=== PATIENT | male | born 1965 | race Caucasian/White ===

== ENCOUNTER → 2016-06-02 06:34 | Day surgery (SDC) | payer MEDICARE, MEDICAID ==
[~2016-06-02 06:34] MED LIST: Buffered Lidocaine 1% SYR 3ML* 3 ML/SYR SYRINGE INTRADERM ONE; Bupivacaine 0.25% SDV* 30 ML ONE; Clindamycin 900 MG IVPREMIX(* 900 MG/50 ML SDV IV ONE; Dexamethasone IV* 4 MG/ML 1 ML (4 MG) IV SLOW PU ONE; Dexamethasone IV* 4 MG/ML 1 ML (4 MG) ONE; Famotidine IV* 10 MG/ML 2 ML (20 mg) IV ONE; Famotidine IV* 10 MG/ML 2 ML (20 mg) ONE; KETAMINE HCL* 50 MG/ML 10 ML VIAL ONE; Ketorolac INJ* 30 MG/ML 1 ML VIAL ONE; Lidocaine 2% PF * 5 ML VIAL ONE; Midazolam* 1 MG/ML 5 ML VIAL (5 MG) ONE; Morphine INJ* 2 MG/ML 1 ML CARPUJECT IV PRN; Ondansetron INJ* 2 MG/ML VIAL ONE; PROCHLORPERAZINE INJ 5 MG/ML 2 ML VIAL IV PRN; PROCHLORPERAZINE INJ 5 MG/ML 2 ML VIAL ONE; Propofol* 10 MG/ML 20 ML BTL IV PUSH ONE; fentaNYL* 50 MCG/ML 2 ML VIAL (100 MCG VIAL) IV PRN; fentaNYL* 50 MCG/ML 2 ML VIAL (100 MCG VIAL) ONE; oxyCODONE/Acetamin 5/325 MG* TAB PO PRN
[2016-06-02 11:45] VITALS: BP 127/81
--- NOTE | 2016-06-02 21:10 | OP ---
DATE OF OPERATION: 06/02/16 - [facility] DATE OF : 69 SURGEON: Ez Burrell MD [address]IGHWAY MAINTENANCE TECHNICIAN: KAELYN Yancey ANESTHESIOLOGIST: Dr. Alvarez. ANESTHESIA: General. 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 OPERATIVE PROCEDURE: 1. Right thumb carpometacarpal interposition arthroplasty with trapeziectomy and tendon interposition. 2. Distally based right flexor carpi radialis split tendon transfer for thumb suspension. INDICATIONS: Vince has advanced thumb basal joint arthritis. We tried some nonoperative treatment. We talked about risks and benefits and he had elected to proceed with surgery. ESTIMATED BLOOD LOSS: 5 mL. COMPLICATIONS: None. FINDINGS: As expected, the scaphotrapezoid joint had relatively well preserved articular cartilage. DESCRIPTION OF PROCEDURE: Vince was seen in the preoperative holding area and the correct side, site, and procedure were identified. He was brought to the operating room where the anesthesia was induced. The arm was prepped and draped in the usual fashion. After a good prescrub and then we had a formal timeout. I made a longitudinal incision from the base of the thumb metacarpal just dorsal to the first dorsal compartment tendons down toward the radial styloid. Dissection was carried down longitudinally to preserve the sensory branches to the radial nerve. The radial artery was encountered. There were 3 perforating vessels that were tied off. This enabled mobilization of the artery. I then longitudinally incised the capsule and periosteum and then raised full- thickness capsule and periosteal flaps subperiosteally to expose the carpometacarpal joint, the trapeziotrapezoid joint, and the scaphotrapezial joint. The soft tissue was released circumferentially around the trapezium with a 69 Westpoint blade. I then used a rongeur and moved the trapezium en bloc. The FCR tendon was visible on the base of the wound. At this point, I went ahead and used a rongeur to remove few other bony ossicles and hypertrophic synovial tissue. I then raised a subperiosteal flap volarly off the base of the thumb. I then used sequentially larger drill bits to drill a hole for the tendon transfer from proximal dorsal radial to volar distal ulnar. I then irrigated the wound and we turned our attention to the forearm. At this point, I went ahead and made a transverse incision just proximal to the volar wrist flexion crease. This was overlying the FCR tendon. I opened up the sheath of the FCR tendon and freed up any adhesions between the tendon and the tendon sheath. About 8 cm proximal to this, I made a second transverse incision in a likewise manner to mobilize the FCR tendon. A third more proximal incision was made and again the FCR tendon was freed up. I then delivered the FCR tendon into the distal wound and performed a longitudinal split with a 15 blade. I passed a 26-gauge wire through the split. The wire was then delivered in the two more proximal wounds to complete the split of the tendon which was released at the musculotendinous junction. The free tail was delivered into the distal wound and the muscular tissue attached to the proximal tendon was debrided off. It was then tubularized with a 3-0 Ethibond suture. I then used a 26-gauge wire to shuttle it through the tendon sheath down into the thumb base wound. The remainder of the tendon split was carried out with the tenotomy scissors all the way back up to the base of the second metacarpal bone. The 26-gauge wire was used the pass the tendon through the bony tunnel, back around the intact limb and then as traction was pulled up towards the ceiling, I used a 3-0 Ethibond suture to secure the tendon transfer. I then rolled up the rest of the tendon and secured the ball of tendon with 3-0 Ethibond suture. This was then placed as an interposition between the base of the thumb and the distal pole of the scaphoid. Everything looked very nice. I then irrigated the wound. The capsule was closed with 3-0 Ethibond suture. All bleeders were coagulated. The skin in the forearm wounds was reapproximated using 3-0 Polysorb suture and closed with 4-0 nylon. The thumb base wound was closed with 4-0 nylon suture. I then went ahead and infiltrated Marcaine along the entirety of the wounds. The wounds were dressed with Xeroform, 4x4's, sterile Webril, and a thumb spica splint was applied. He was then taken to the recovery room in stable condition. [id number]/[facility] #: [id number] [facility]
== END | disposition home or self-care (01) ==
LOC: OREAST 06:34
PROVIDERS: ATTEND Orthopaedic Surgery Hand Surgery
DX: M18.11 Unilateral primary osteoarthritis of first carpometacarpal joint, right hand (principal); G40.909 Epilepsy, unspecified, not intractable, without status epilepticus; M77.11 Lateral epicondylitis, right elbow
CPT/HCPCS: 88304; 88311; J0780; J1100; J1885; J2250; J2405; J2704; J3010

== ENCOUNTER 2019-03-13 14:47 | Emergency (ER) | payer MEDICAID, MEDICARE, OTHER ==
--- OUTSIDE RECORDS SUMMARY | 2019-03-13 15:08 | XMS REPORT | Continuity of Care Document ---
:1965 External Reference #:[id number] Author Name Fabiola Vilchis PA Address [address] [facility] 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 Onset: 03/12/2017 Bipolar disorder Kobi Carlin M.D. Onset: 03/12/2017 Encounter for screening for nutritional Kobi Carlin M.D. Onset: 03/12/2017 disorder Immunization Kobi Carlin M.D. Onset: 03/12/2017 Hyperlipidemia Kobi Carlin M.D. Onset: 03/12/2017 Hyperlipidemia screening Kobi Carlin M.D. Onset: 03/12/2017 Other seizures Kobi Carlin M.D. Onset: 03/12/2017 Vitamin D deficiency Kobi Carlin M.D. Onset: 04/09/2017 Microscopic hematuria Kobi Carlin M.D. Onset: 04/09/2017 Anxiety state Kobi Carlin M.D. Onset: 05/22/2017 Contusion of hip Fabiola Vilchis PA Onset: 10/19/2017 Localized, primary osteoarthritis of Fabiola Vilchis PA Onset: 10/27/2017 the pelvic region and thigh Contusion of wrist Fabiola Vilchis PA Onset: 01/19/2018 Radial styloid tenosynovitis Fabiola Vilchis PA Onset: 01/19/2018 Contusion of foot Fabiola Vilchis PA Onset: 06/10/2018 Sprain of wrist Fabiola Vilchis PA Onset: 07/02/2018 Crushing injury of right wrist and Fabiola Vilchis PA Onset: 07/02/2018 hand, subsequent encounter Localized, primary osteoarthritis Fabiola Vilchis PA Onset: 12/09/2018 Derangement of knee Fabiola Vilchis PA Onset: 12/09/2018 Fall on same level from slipping, Fabiola Vilchis PA Onset: 12/09/2018 tripping or stumbling Sprain of ankle Fabiola Vilchis PA Onset: 01/10/2019 Social History Type Date Description Comments Sex Unknown Tobacco Use Start: Unknown Never Smoked Cigarettes ETOH Use Denies alcohol use Tobacco Use Start: Unknown Patient denies history of smoking Recreational Drug Use Denies Drug Use Smoking Status Reviewed: 01/10/19 Patient denies history of smoking Exercise Type/Frequency Exercises regularly walks Allergies, Adverse Reactions, Alerts Active Allergies Reaction Severity Comments Date Penicillins 01/17/2009 Codeine 01/30/2012 Cortisone Injection 12/04/2017 Medications Active Medications SIG Qnty Indications Ordering Date Provider Depakote take one tablet by Cal Gonzalez MD 500mg Tablets DR mouth twice a day Naproxen take one tablet by Unknown 500mg Tablets mouth twice a day Meloxicam 1 by mouth every Unknown 15mg Tablets day with food Ibuprofen 1 by mouth three Unknown 600mg Tablets times a day as needed Soothing - 12 Hour [place] 2 Sprays Unknown Nasal Decongestant Intranasally Two 0.05% Times A Day For Solution Only 3 Days Doxycycline Hyclate Take One Capsule By Unknown 100mg Mouth Twice A Day Capsules Divalproex Sodium ER Take One Tablet By Unknown Mouth Every Evening 250mg Tablets ER 24HR With 500MG Tablet Cyclobenzaprine HCL Take One Tablet By Unknown 5mg Mouth Three Times A Tablets Day as Needed For Muscle Spasms Divalproex Sodium ER Take One Tablet By Unknown Mouth Every Morning 500mg Tablets ER 24HR And In The Evenings With 250MG Tablet Ondansetron HCL Take One Tablet By Unknown 4mg Mouth Every 8 Hours Tablets as Needed For Nausea Medications Administered in Office Medication SIG Qnty Indications Ordering Provider Date Betamethasone Acetate & Sodium Fabiola Vilchis PA 02/11/2018 Phosphate 3 MG Of Each Injection Immunizations CPT Code Status Date Vaccine Lot # [id number] Given 03/12/2017 Tdap injection [id number] Given 09/11/1997 Tetnus Injection Vital Signs Date Vital Result Comment 01/10/2019 1:03pm BP Systolic 122 mmHg BP Diastolic 83 mmHg Body Temperature 96.7 F Heart Rate 70 /min Height 66 inches 5'6" Weight 179.00 lb BMI (Body Mass Index) 28.9 kg/m2 BSA (Body Surface Area) 1.91 m2 Pickerel body weight in kilograms 64 kg O2 % BldC Oximetry 100 % 12/23/2018 1:17pm BP Systolic 128 mmHg BP Diastolic 90 mmHg Body Temperature 96.8 F Heart Rate 86 /min Height 66 inches 5'6" Weight 179.00 lb BMI (Body Mass Index) 28.9 kg/m2 BSA (Body Surface Area) 1.91 m2 Pickerel body weight in kilograms 64 kg O2 % BldC Oximetry 98 % Results Test Acquired Date Facility Test Result H/L Range Note CBC 11/25/2018 [facility] White Blood 5.7 K/uL Normal 3.4-10.5 1 W/Automated [address] [place] [address] [phone] Red Blood Count 5.45 M/uL Normal 4.20-5.80 Hemoglobin 15.4 gm/dL Normal 12.8-17.0 Hematocrit 47.8 % 38.0-48.0 Mean Cell Volume 87.7 fl Normal 80.0-96.0 Mean Corpuscular HGB 28.3 pg Normal 27.0-33.0 Mean Corpuscular HGB Conc 32.2 g/dL Normal 31.7-36.0 Platelet Count 257 K/uL Normal 155-360 Red Cell Distri Width SD 42.5 fl Normal 36-51 Red Cell Distri Width %CV 13.3 % Normal 11.6-15.8 Mean Platelet Volume 10.8 fl High 6.6-10.6 Neut% 46.5 % Normal 33.0-73.0 Lymph % 39.1 % Normal 20.0-42.0 [place] % 8.5 % Normal 0.0-10.0 Eo% 4.8 % Normal 0.0-6.6 Bas% 0.7 % Normal 0.0-1.1 Immature Grans 0.4 % Normal 0.0-5.0 NRBC % 0.0 /100WBC < 10/ 100 WBC Neut# 2.65 K/uL Normal 1.8-7.0 Lymph # 2.22 K/uL Normal 1.0-4.0 Clarion # 0.48 K/uL Normal 0.0-0.8 Eos # 0.27 K/uL Normal 0.0-0.5 Baso # 0.04 K/uL Normal 0.0-0.1 Immature Grans Absolute 0.02 K/uL NRBC # 0.00 K/uL Comprehensive 11/25/2018 [facility] Glucose 89 mg/dL Normal 74-106 Metabolic Panel [address] [place] [address] [phone] BUN 23 mg/dL High 7-18 Creatinine 1.1 mg/dL Normal 0.6-1.3 Glom Filtration Rate, Estimate >60 mL/min >60 If >60 mL/min >60 2 BUN/Creat 20.9 ratio Sodium 140 mmol/L Normal 136-145 Potassium 4.3 mmol/L Normal 3.5-5.1 Chloride 106 mmol/L Normal 98-107 Carbon Dioxide 30 mmol/L Normal 21-32 Anion Gap 4 mEq/L Low 8-16 Calcium 9.0 mg/dL Normal 8.5-10.1 Total Protein 7.0 g/dL Normal 6.4-8.2 Albumin 3.7 g/dL Normal 3.4-5.0 Globulin 3.3 g/dL Normal 1.9-4.3 Alb/Glob 1.1 ratio Bilirubin,Total 0.3 mg/dL Normal 0.2-1.0 Sgot/Ast 8 U/L Low 15-37 3 SGPT/Alt 21 U/L Normal 12-78 Alkaline Phosphatase 83 U/L Normal 45-117 CBC W/Automated 11/21/2018 [facility] White Blood 6.5 K/uL Normal 3.4-10.5 [address] [place] [address] [phone] Red Blood Count 4.91 M/uL Normal 4.20-5.80 Hemoglobin 14.6 gm/dL Normal 12.8-17.0 Hematocrit 42.3 % Normal 38.0-48.0 Mean Cell Volume 86.2 fl Normal 80.0-96.0 Mean Corpuscular HGB 29.7 pg Normal 27.0-33.0 Mean Corpuscular HGB Conc 34.5 g/dL Normal 31.7-36.0 Platelet Count 260 K/uL Normal 155-360 Red Cell Distri Width SD 42.0 fl Normal 36-51 Red Cell Distri Width %CV 13.4 % Normal 11.6-15.8 Mean Platelet Volume 10.9 fl High 6.6-10.6 Neut% 48.8 % Normal 33.0-73.0 Lymph % 36.3 % Normal 20.0-42.0 Clar[place] % 9.7 % Normal 0.0-10.0 Eo% 3.8 % Normal 0.0-6.6 Bas% 0.9 % Normal 0.0-1.1 Immature Grans 0.5 % Normal 0.0-5.0 NRBC % 0.0 /100WBC < 10/ 100 WBC Neut# 3.18 K/uL Normal 1.8-7.0 Lymph # 2.36 K/uL Normal 1.0-4.0 Clar[place] # 0.63 K/uL Normal 0.0-0.8 Eos # 0.25 K/uL Normal 0.0-0.5 Baso # 0.06 K/uL Normal 0.0-0.1 Immature Grans Absolute 0.03 K/uL NRBC # 0.00 K/uL Laboratory test 11/21/2018 [facility] Valproic 69.1 Normal 50.0-100.[address] Acid ug/[place] [address] [phone] Comprehensive 11/21/2018 [facility] Glucose 109 High 74-106 Metabolic Panel [address] mg/[place] [address] [phone] BUN 17 mg/dL Normal 7-18 Creatinine 1.0 mg/dL Normal 0.6-1.3 Glom Filtration Rate, Estimate >60 mL/min >60 If >60 mL/min >60 5 BUN/Creat 17.0 ratio Sodium 141 mmol/L Normal 136-145 Potassium 3.9 mmol/L Normal 3.5-5.1 Chloride 108 mmol/L High 98-107 Carbon Dioxide 25 mmol/L Normal 21-32 Anion Gap 8 mEq/L Normal 8-16 Calcium 8.4 mg/dL Low 8.5-10.1 Total Protein 6.5 g/dL Normal 6.4-8.2 Albumin 3.4 g/dL Normal 3.4-5.0 Globulin 3.1 g/dL Normal 1.9-4.3 Alb/Glob 1.1 ratio Bilirubin,Total 0.3 mg/dL Normal 0.2-1.0 Sgot/Ast 14 U/L Low 15-37 6 SGPT/Alt 24 U/L Normal 12-78 Alkaline Phosphatase 73 U/L Normal 45-117 Ua RFX Micro & Culture 11/21/2018 [facility] Urine Color Yellow Yellow II [address] [place] [address] [phone] Urine Clarity Clear Clear Urine Glucose - Dipstick NEGATIVE mg/dL Negative Urine Bilirubin - Dipstick NEGATIVE Negative Urine Ketone TRACE mg/dL Negative Urine Specific [place] 1.030 Normal 1.010-1.030 Urine Blood NEGATIVE 0-2 Urine PH 6.5 Normal 6.5-7.5 Urine Protein - Dipstick NEGATIVE mg/dL Negative Urine Urobilinogen - Dipstick < 2.0 mg/dL < 2.0 Urine Nitrite - Dipstick NEGATIVE Negative Urine Leuk Esterase NEGATIVE Negative Source: URINE, CLEAN CAT <SEE NOTE> 7 CBC W/Automated 10/30/2018 [facility] White Blood 6.3 K/uL Normal 3.4-10.5 [address] [place] [address] [phone] Red Blood Count 5.06 M/uL Normal 4.20-5.80 Hemoglobin 14.9 gm/dL Normal 12.8-17.0 Hematocrit 43.5 % Normal 38.0-48.0 Mean Cell Volume 86.0 fl Normal 80.0-96.0 Mean Corpuscular HGB 29.4 pg Normal 27.0-33.0 Mean Corpuscular HGB Conc 34.3 g/dL Normal 31.7-36.0 Platelet Count 201 K/uL Normal 155-360 Red Cell Distri Width SD 40.1 fl Normal 36-51 Red Cell Distri Width %CV 13.1 % Normal 11.6-15.8 Mean Platelet Volume 10.7 fl High 6.6-10.6 Neut% 55.7 % Normal 33.0-73.0 Lymph % 29.8 % Normal 20.0-42.0 [place] % 10.5 % High 0.0-10.0 Eo% 2.7 % Normal 0.0-6.6 Bas% 0.8 % Normal 0.0-1.1 Immature Grans 0.5 % Normal 0.0-5.0 NRBC % 0.0 /100WBC < 10/ 100 WBC Neut# 3.49 K/uL Normal 1.8-7.0 Lymph # 1.87 K/uL Normal 1.0-4.0 [place] # 0.66 K/uL Normal 0.0-0.8 Eos # 0.17 K/uL Normal 0.0-0.5 Baso # 0.05 K/uL Normal 0.0-0.1 Immature Grans Absolute 0.03 K/uL NRBC # 0.00 K/uL Comprehensive Metabolic 10/30/2018 [facility] Glucose 127 mg/dL High 74-106 Panel [address] [place], [place] [id number] [phone] BUN 19 mg/dL High 7-18 Creatinine 1.1 mg/dL Normal 0.6-1.3 Glom Filtration Rate, Estimate >60 mL/min >60 If >60 mL/min >60 9 BUN/Creat 17.2 ratio Sodium 143 mmol/L Normal 136-145 Potassium 4.0 mmol/L Normal 3.5-5.1 Chloride 108 mmol/L High 98-107 Carbon Dioxide 28 mmol/L Normal 21-32 Anion Gap 7 mEq/L Low 8-16 Calcium 8.6 mg/dL Normal 8.5-10.1 Total Protein 6.6 g/dL Normal 6.4-8.2 Albumin 3.6 g/dL Normal 3.4-5.0 Globulin 3.0 g/dL Normal 1.9-4.3 Alb/Glob 1.2 ratio Bilirubin,Total 0.3 mg/dL Normal 0.2-1.0 Sgot/Ast 10 U/L Low 15-37 10 SGPT/Alt 17 U/L Normal 12-78 Alkaline Phosphatase 67 U/L Normal 45-117 Ua RFX Micro & Culture 10/24/2018 [facility] Urine Color YELLOW Yellow 11 II [address] [place] [address] [phone] Urine Clarity CLEAR Clear Urine Glucose - Dipstick NEGATIVE mg/dL Negative Urine Bilirubin - Dipstick NEGATIVE Negative Urine Ketone NEGATIVE mg/dL Negative Urine Specific [place] 1.020 Normal 1.010-1.030 Urine Blood NEGATIVE Negative Urine PH 5.5 Low 6.5-7.5 Urine Protein - Dipstick NEGATIVE mg/dL Negative Urine Urobilinogen - Dipstick 0.2 E.U./dL Normal 0.2-1.0 Urine Nitrite - Dipstick NEGATIVE Negative Urine Leuk Esterase NEGATIVE Negative Source: URINE, CLEAN CAT <SEE NOTE> 12 Ua RFX Micro & Culture 10/21/2018 [facility] Urine Color YELLOW Yellow 13 II [address] [place] [address] [phone] Urine Clarity CLEAR Clear Urine Glucose - Dipstick NEGATIVE mg/dL Negative Urine Bilirubin - Dipstick NEGATIVE Negative Urine Ketone 15 mg/dL High Negative Urine Specific [place] 1.025 Normal 1.010-1.030 Urine Blood NEGATIVE Negative Urine PH 6.0 Low 6.5-7.5 Urine Protein - Dipstick NEGATIVE mg/dL Negative Urine Urobilinogen - Dipstick 2.0 E.U./dL High 0.2-1.0 Urine Nitrite - Dipstick NEGATIVE Negative Urine Leuk Esterase NEGATIVE Negative Source: URINE, CLEAN CAT <SEE NOTE> 14 CBC W/Automated 10/21/2018 [facility] White Blood 7.4 K/uL Normal 3.4-10.5 Diff [address] [place] [address] [phone] Red Blood Count 5.51 M/uL Normal 4.20-5.80 Hemoglobin 16.3 gm/dL Normal 12.8-17.0 Hematocrit 46.9 % Normal 38.0-48.0 Mean Cell Volume 85.1 fl Normal 80.0-96.0 Mean Corpuscular HGB 29.6 pg Normal 27.0-33.0 Mean Corpuscular HGB Conc 34.8 g/dL Normal 31.7-36.0 Platelet Count 244 K/uL Normal 155-360 Red Cell Distri Width SD 39.9 fl Normal 36-51 Red Cell Distri Width %CV 13.0 % Normal 11.6-15.8 Mean Platelet Volume 11.1 fl High 6.6-10.6 Neut% 51.1 % Normal 33.0-73.0 Lymph % 35.8 % Normal 20.0-42.0 Clar[place] % 8.4 % Normal 0.0-10.0 Eo% 3.4 % Normal 0.0-6.6 Bas% 0.9 % Normal 0.0-1.1 Immature Grans 0.4 % Normal 0.0-5.0 NRBC % 0.0 /100WBC < 10/ 100 WBC Neut# 3.76 K/uL Normal 1.8-7.0 Lymph # 2.64 K/uL Normal 1.0-4.0 [place] # 0.62 K/uL Normal 0.0-0.8 Eos # 0.25 K/uL Normal 0.0-0.5 Baso # 0.07 K/uL Normal 0.0-0.1 Immature Grans Absolute 0.03 K/uL NRBC # 0.00 K/uL Comprehensive 10/21/2018 [facility] Glucose 89 mg/dL Normal 74-106 Metabolic Panel [address] [place], [place] [id number] [phone] BUN 22 mg/dL High 7-18 Creatinine 1.2 mg/dL Normal 0.6-1.3 Glom Filtration Rate, Estimate >60 mL/min >60 If >60 mL/min >60 15 BUN/Creat 18.3 ratio Sodium 140 mmol/L Normal 136-145 Potassium 4.1 mmol/L Normal 3.5-5.1 Chloride 107 mmol/L Normal 98-107 Carbon Dioxide 27 mmol/L Normal 21-32 Anion Gap 6 mEq/L Low 8-16 Calcium 8.5 mg/dL Normal 8.5-10.1 Total Protein 7.3 g/dL Normal 6.4-8.2 Albumin 3.9 g/dL Normal 3.4-5.0 Globulin 3.4 g/dL Normal 1.9-4.3 Alb/Glob 1.1 ratio Bilirubin,Total 0.3 mg/dL Normal 0.2-1.0 Sgot/Ast 9 U/L Low 15-37 16 SGPT/Alt 20 U/L Normal 12-78 Alkaline Phosphatase 75 U/L Normal 45-117 Laboratory 10/21/2018 [facility] Valproic 107.4 High 50.0-100.0 test finding [address] Acid ug/[place] [address] [phone] CBC 10/10/2018 [facility] White Blood 6.8 K/uL Normal 3.4-10.5 17 W/Automated [address] [place] [address] [phone] Red Blood Count 5.40 M/uL Normal 4.20-5.80 Hemoglobin 15.8 gm/dL Normal 12.8-17.0 Hematocrit 46.3 % Normal 38.0-48.0 Mean Cell Volume 85.7 fl Normal 80.0-96.0 Mean Corpuscular HGB 29.3 pg Normal 27.0-33.0 Mean Corpuscular HGB Conc 34.1 g/dL Normal 31.7-36.0 Platelet Count 273 K/uL Normal 155-360 Red Cell Distri Width SD 40.8 fl Normal 36-51 Red Cell Distri Width %CV 13.2 % Normal 11.6-15.8 Mean Platelet Volume 11.6 fl High 6.6-10.6 Neut% 49.1 % Normal 33.0-73.0 Lymph % 39.0 % Normal 20.0-42.0 Clar[place] % 8.2 % Normal 0.0-10.0 Eo% 2.7 % Normal 0.0-6.6 Bas% 0.7 % Normal 0.0-1.1 Immature Grans 0.3 % Normal 0.0-5.0 NRBC % 0.0 /100WBC < 10/ 100 WBC Neut# 3.33 K/uL Normal 1.8-7.0 Lymph # 2.65 K/uL Normal 1.0-4.0 [place] # 0.56 K/uL Normal 0.0-0.8 Eos # 0.18 K/uL Normal 0.0-0.5 Baso # 0.05 K/uL Normal 0.0-0.1 Immature Grans Absolute 0.02 K/uL NRBC # 0.00 K/uL Comprehensive 10/10/2018 [facility] Glucose 96 mg/dL Normal 74-106 Metabolic Panel [address] [place] [address] [phone] BUN 18 mg/dL Normal 7-18 Creatinine 1.1 mg/dL Normal 0.6-1.3 Glom Filtration Rate, Estimate >60 mL/min >60 If >60 mL/min >60 18 BUN/Creat 16.3 ratio Sodium 142 mmol/L Normal 136-145 Potassium 3.7 mmol/L Normal 3.5-5.1 Chloride 109 mmol/L High 98-107 Carbon Dioxide 24 mmol/L Normal 21-32 Anion Gap 9 mEq/L Normal 8-16 Calcium 8.5 mg/dL Normal 8.5-10.1 Total Protein 7.3 g/dL Normal 6.4-8.2 Albumin 4.0 g/dL Normal 3.4-5.0 Globulin 3.3 g/dL Normal 1.9-4.3 Alb/Glob 1.2 ratio Bilirubin,Total 0.3 mg/dL Normal 0.2-1.0 Sgot/Ast 11 U/L Low 15-37 19 SGPT/Alt 18 U/L Normal 12-78 Alkaline Phosphatase 78 U/L Normal 45-117 Laboratory test 09/22/2018 [facility] Valproic 5.5 Low 50.0-100.0 [address] Acid ug/[place] [address] [phone] Comprehensive 09/22/2018 [facility] Glucose 102 Normal 74-106 Metabolic Panel [address] mg/[place] [address] [phone] BUN 14 mg/dL Normal 7-18 Creatinine 1.1 mg/dL Normal 0.6-1.3 Glom Filtration Rate, Estimate >60 mL/min >60 If >60 mL/min >60 21 BUN/Creat 12.7 ratio Sodium 142 mmol/L Normal 136-145 Potassium 3.5 mmol/L Normal 3.5-5.1 Chloride 111 mmol/L High 98-107 Carbon Dioxide 24 mmol/L Normal 21-32 Anion Gap 7 mEq/L Low 8-16 Calcium 8.7 mg/dL Normal 8.5-10.1 Total Protein 7.2 g/dL Normal 6.4-8.2 Albumin 3.9 g/dL Normal 3.4-5.0 Globulin 3.3 g/dL Normal 1.9-4.3 Alb/Glob 1.2 ratio Bilirubin,Total 0.4 mg/dL Normal 0.2-1.0 Sgot/Ast 13 U/L Low 15-37 22 SGPT/Alt 20 U/L Normal 12-78 Alkaline Phosphatase 84 U/L Normal 45-117 Ua RFX Micro & Culture 09/22/2018 [facility] Urine Color YELLOW Yellow II [address] [place] [address] [phone] Urine Clarity CLEAR Clear Urine Glucose - Dipstick NEGATIVE mg/dL Negative Urine Bilirubin - Dipstick NEGATIVE Negative Urine Ketone NEGATIVE mg/dL Negative Urine Specific [place] 1.025 Normal 1.010-1.030 Urine Blood NEGATIVE Negative Urine PH 6.5 Normal 6.5-7.5 Urine Protein - Dipstick TRACE mg/dL Negative Urine Urobilinogen - Dipstick 0.2 E.U./dL Normal 0.2-1.0 Urine Nitrite - Dipstick NEGATIVE Negative Urine Leuk Esterase NEGATIVE Negative Source: URINE, CLEAN CAT <SEE NOTE> 23 CBC W/Automated 09/22/2018 [facility] White Blood 6.5 K/uL Normal 3.4-10.[address] [place] [address] [phone] Red Blood Count 5.45 M/uL Normal 4.20-5.80 Hemoglobin 15.9 gm/dL Normal 12.8-17.0 Hematocrit 44.7 % Normal 38.0-48.0 Mean Cell Volume 82.0 fl Normal 80.0-96.0 Mean Corpuscular HGB 29.2 pg Normal 27.0-33.0 Mean Corpuscular HGB Conc 35.6 g/dL Normal 31.7-36.0 Platelet Count 263 K/uL Normal 155-360 Red Cell Distri Width SD 37.2 fl Normal 36-51 Red Cell Distri Width %CV 12.5 % Normal 11.6-15.8 Mean Platelet Volume 11.6 fl High 6.6-10.6 Neut% 58.1 % Normal 33.0-73.0 Lymph % 29.2 % Normal 20.0-42.0 [place] % 9.3 % Normal 0.0-10.0 Eo% 2.3 % Normal 0.0-6.6 Bas% 0.8 % Normal 0.0-1.1 Immature Grans 0.3 % Normal 0.0-5.0 NRBC % 0.0 /100WBC < 10/ 100 WBC Neut# 3.77 K/uL Normal 1.8-7.0 Lymph # 1.89 K/uL Normal 1.0-4.0 [place] # 0.60 K/uL Normal 0.0-0.8 Eos # 0.15 K/uL Normal 0.0-0.5 Baso # 0.05 K/uL Normal 0.0-0.1 Immature Grans Absolute 0.02 K/uL NRBC # 0.00 K/uL Ua RFX Micro & Culture 08/28/2018 [facility] Urine Color YELLOW Yellow II [address] [place] [address] [phone] Urine Clarity CLEAR Clear Urine Glucose - Dipstick NEGATIVE mg/dL Negative Urine Bilirubin - Dipstick NEGATIVE Negative Urine Ketone NEGATIVE mg/dL Negative Urine Specific [place] 1.015 Normal 1.010-1.030 Urine Blood NEGATIVE Negative Urine PH 7.5 Normal 6.5-7.5 Urine Protein - Dipstick NEGATIVE mg/dL Negative Urine Urobilinogen - Dipstick 0.2 E.U./dL Normal 0.2-1.0 Urine Nitrite - Dipstick NEGATIVE Negative Urine Leuk Esterase NEGATIVE Negative Source: URINE, CLEAN CAT <SEE NOTE> 24 Comprehensive 08/28/2018 [facility] Glucose 100 mg/dL Normal 74-106 Metabolic Panel [address] [place] [address] [phone] BUN 20 mg/dL High 7-18 Creatinine 1.2 mg/dL Normal 0.6-1.3 Glom Filtration Rate, Estimate >60 mL/min >60 If >60 mL/min >60 25 BUN/Creat 16.6 ratio Sodium 141 mmol/L Normal 136-145 Potassium 4.1 mmol/L Normal 3.5-5.1 Chloride 110 mmol/L High 98-107 Carbon Dioxide 23 mmol/L Normal 21-32 Anion Gap 8 mEq/L Normal 8-16 Calcium 8.8 mg/dL Normal 8.5-10.1 Total Protein 7.1 g/dL Normal 6.4-8.2 Albumin 3.8 g/dL Normal 3.4-5.0 Globulin 3.3 g/dL Normal 1.9-4.3 Alb/Glob 1.2 ratio Bilirubin,Total 0.3 mg/dL Normal 0.2-1.0 Sgot/Ast 14 U/L Low 15-37 26 SGPT/Alt 24 U/L Normal 12-78 Alkaline Phosphatase 82 U/L Normal 45-117 Laboratory test 08/28/2018 [facility] Lipase 149 U/L Normal 56-289 finding [address] [place] [address] [phone] CBC W/Automated 08/28/2018 [facility] White Blood 6.6 K/uL Normal 3.4-10.[address] [place] [address] [phone] Red Blood Count 5.25 M/uL Normal 4.20-5.80 Hemoglobin 15.4 gm/dL Normal 12.8-17.0 Hematocrit 44.7 % Normal 38.0-48.0 Mean Cell Volume 85.1 fl Normal 80.0-96.0 Mean Corpuscular HGB 29.3 pg Normal 27.0-33.0 Mean Corpuscular HGB Conc 34.5 g/dL Normal 31.7-36.0 Platelet Count 251 K/uL Normal 155-360 Red Cell Distri Width SD 39.8 fl Normal 36-51 Red Cell Distri Width %CV 12.8 % Normal 11.6-15.8 Mean Platelet Volume 11.2 fl High 6.6-10.6 Neut% 53.4 % Normal 33.0-73.0 Lymph % 34.1 % Normal 20.0-42.0 [place] % 8.3 % Normal 0.0-10.0 Eo% 3.0 % Normal 0.0-6.6 Bas% 0.9 % Normal 0.0-1.1 Immature Grans 0.3 % Normal 0.0-5.0 NRBC % 0.0 /100WBC < 10/ 100 WBC Neut# 3.54 K/uL Normal 1.8-7.0 Lymph # 2.26 K/uL Normal 1.0-4.0 Clar[place] # 0.55 K/uL Normal 0.0-0.8 Eos # 0.20 K/uL Normal 0.0-0.5 Baso # 0.06 K/uL Normal 0.0-0.1 Immature Grans Absolute 0.02 K/uL NRBC # 0.00 K/uL Ua RFX Micro & Culture 08/07/2018 [facility] Urine Color YELLOW Yellow [address] [place] [address] [phone] Urine Clarity SL CLOUDY Clear Urine Glucose - Dipstick NEGATIVE mg/dL Negative Urine Bilirubin - Dipstick NEGATIVE Negative Urine Ketone 15 mg/dL High Negative Urine Specific Warren 1.010 Normal 1.010-1.030 Urine Blood NEGATIVE Negative Urine PH 7.0 Normal 6.5-7.5 Urine Protein - Dipstick NEGATIVE mg/dL Negative Urine Urobilinogen - Dipstick 0.2 E.U./dL Normal 0.2-1.0 Urine Nitrite - Dipstick NEGATIVE Negative Urine Leuk Esterase NEGATIVE Negative Source: URINE, CLEAN CAT <SEE NOTE> 28 CBC W/Automated 08/07/2018 [facility] White Blood 6.5 K/uL Normal 3.4-10.[address] [place] [address] [phone] Red Blood Count 5.31 M/uL Normal 4.20-5.80 Hemoglobin 15.6 gm/dL Normal 12.8-17.0 Hematocrit 44.9 % Normal 38.0-48.0 Mean Cell Volume 84.6 fl Normal 80.0-96.0 Mean Corpuscular HGB 29.4 pg Normal 27.0-33.0 Mean Corpuscular HGB Conc 34.7 g/dL Normal 31.7-36.0 Platelet Count 275 K/uL Normal 155-360 Red Cell Distri Width SD 39.2 fl Normal 36-51 Red Cell Distri Width %CV 12.9 % Normal 11.6-15.8 Mean Platelet Volume 11.0 fl High 6.6-10.6 Neut% 66.3 % Normal 33.0-73.0 Lymph % 23.2 % Normal 20.0-42.0 [place] % 8.5 % Normal 0.0-10.0 Eo% 0.9 % Normal 0.0-6.6 Bas% 0.8 % Normal 0.0-1.1 Immature Grans 0.3 % Normal 0.0-5.0 NRBC % 0.0 /100WBC < 10/ 100 WBC Neut# 4.29 K/uL Normal 1.8-7.0 Lymph # 1.50 K/uL Normal 1.0-4.0 [place] # 0.55 K/uL Normal 0.0-0.8 Eos # 0.06 K/uL Normal 0.0-0.5 Baso # 0.05 K/uL Normal 0.0-0.1 Immature Grans Absolute 0.02 K/uL NRBC # 0.00 K/uL Comprehensive 08/07/2018 [facility] Glucose 96 mg/dL Normal 74-106 Metabolic Panel [address] [place] [address] [phone] BUN 16 mg/dL Normal 7-18 Creatinine 1.0 mg/dL 0.6-1.3 Glom Filtration Rate, Estimate >60 mL/min >60 If >60 mL/min >60 29 BUN/Creat 16.0 ratio Sodium 139 mmol/L Normal 136-145 Potassium 4.2 mmol/L Normal 3.5-5.1 Chloride 107 mmol/L Normal 98-107 Carbon Dioxide 25 mmol/L Normal 21-32 Anion Gap 7 mEq/L Low 8-16 Calcium 9.2 mg/dL Normal 8.5-10.1 Total Protein 7.0 g/dL Normal 6.4-8.2 Albumin 3.9 g/dL Normal 3.4-5.0 Globulin 3.1 g/dL Normal 1.9-4.3 Alb/Glob 1.3 ratio Bilirubin,Total 0.5 mg/dL Normal 0.2-1.0 Sgot/Ast 13 U/L Low 15-37 30 SGPT/Alt 21 U/L Normal 12-78 Alkaline Phosphatase 77 U/L Normal 45-117 Laboratory test finding 08/07/2018 [facility] Lipase 112 U/L Normal 56-289 [address] [place] [address] [phone] 1 LIGHT HEADED DIZZINESS 2 Note: Persistent reduction for 3 months or more in an eGFR <60 mL/min/1.73 m2 defines CKD. Patients with eGFR values >/=60 mL/min/1.73 m2 may also have CKD if evidence of persistent proteinuria is present. The original MDRD equation for estimated GFR is not valid for patients less than 18 years of age. Additional information may be found at [email or web address]. 3 Values below the stated reference ranges of AST and ALT can be seen in normal populations. Clinical correlation is suggested. 4 DIZZY 5 Note: Persistent reduction for 3 months or more in an eGFR <60 mL/min/1.73 m2 defines CKD. Patients with eGFR values >/=60 mL/min/1.73 m2 may also have CKD if evidence of persistent proteinuria is present. The original MDRD equation for estimated GFR is not valid for patients less than 18 years of age. Additional information may be found at [email or web address]. 6 Values below the stated reference ranges of AST and ALT can be seen in normal populations. Clinical correlation is suggested. 7 URINE, CLEAN CATCH 8 SHAKY 9 Note: Persistent reduction for 3 months or more in an eGFR <60 mL/min/1.73 m2 defines CKD. Patients with eGFR values >/=60 mL/min/1.73 m2 may also have CKD if evidence of persistent proteinuria is present. The original MDRD equation for estimated GFR is not valid for patients less than 18 years of age. Additional information may be found at [email or web address]. 10 Values below the stated reference ranges of AST and ALT can be seen in normal populations. Clinical correlation is suggested. 11 LIGHTHEADED,SHAKY 12 URINE, CLEAN CATCH 13 FEELS LIKE HE WAS GOING TO PASS OUT 14 URINE, CLEAN CATCH 15 Note: Persistent reduction for 3 months or more in an eGFR <60 mL/min/1.73 m2 defines CKD. Patients with eGFR values >/=60 mL/min/1.73 m2 may also have CKD if evidence of persistent proteinuria is present. The original MDRD equation for estimated GFR is not valid for patients less than 18 years of age. Additional information may be found at [email or web address]. 16 Values below the stated reference ranges of AST and ALT can be seen in normal populations. Clinical correlation is suggested. 17 FEELS LIKE PASSING OUT,SEIZURE POSS,WEAK 18 Note: Persistent reduction for 3 months or more in an eGFR <60 mL/min/1.73 m2 defines CKD. Patients with eGFR values >/=60 mL/min/1.73 m2 may also have CKD if evidence of persistent proteinuria is present. The original MDRD equation for estimated GFR is not valid for patients less than 18 years of age. Additional information may be found at [email or web address]. 19 Values below the stated reference ranges of AST and ALT can be seen in normal populations. Clinical correlation is suggested. 20 POSS SEIZURE 21 Note: Persistent reduction for 3 months or more in an eGFR <60 mL/min/1.73 m2 defines CKD. Patients with eGFR values >/=60 mL/min/1.73 m2 may also have CKD if evidence of persistent proteinuria is present. The original MDRD equation for estimated GFR is not valid for patients less than 18 years of age. Additional information may be found at [email or web address]. 22 Values below the stated reference ranges of AST and ALT can be seen in normal populations. Clinical correlation is suggested. 23 URINE, CLEAN CATCH 24 URINE, CLEAN CATCH 25 Note: Persistent reduction for 3 months or more in an eGFR <60 mL/min/1.73 m2 defines CKD. Patients with eGFR values >/=60 mL/min/1.73 m2 may also have CKD if evidence of persistent proteinuria is present. The original MDRD equation for estimated GFR is not valid for patients less than 18 years of age. Additional information may be found at [email or web address]. 26 Values below the stated reference ranges of AST and ALT can be seen in normal populations. Clinical correlation is suggested. 27 ABD PAIN 28 URINE, CLEAN CATCH 29 Note: Persistent reduction for 3 months or more in an eGFR <60 mL/min/1.73 m2 defines CKD. Patients with eGFR values >/=60 mL/min/1.73 m2 may also have CKD if evidence of persistent proteinuria is present. The original MDRD equation for estimated GFR is not valid for patients less than 18 years of age. Additional information may be found at [email or web address]. 30 Values below the stated reference ranges of AST and ALT can be seen in normal populations. Clinical correlation is suggested. 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, PA patellae, left knee Office Visit 12/09/2018 Florencia Vilchis, M17.12 Unilateral primary 1:45p Office Fabiola, PA osteoarthritis, left knee M23.8x2 Other internal derangements of left knee W01.0xxD Fall same lev from slip/trip w/o strike against object, subs Office Visit 11/02/2018 Orthopaedic Deng M17.12 Unilateral primary 11:00a Office KAELYN Hicks osteoarthritis, left knee M23.8x2 Other internal derangements of left knee W01.0xxA Fall same lev from slip/trip w/o strike against object, init Assessments Date Code Description Provider 01/10/2019 S93.402A Sprain of unspecified ligament of left ankle, Fabiola Vilchis PA initial encounter 01/10/2019 M25.572 Pain in left ankle and joints of left foot Fabiola Vilchis PA 12/23/2018 M22.42 Chondromalacia patellae, left knee Fabiola Vilchis PA 12/09/2018 M17.12 Unilateral primary osteoarthritis, left knee Fabiola Vilchis PA 12/09/2018 M23.8x2 Other internal derangements of left knee Fabiola Vilchis PA 12/09/2018 W01.0xxD Fall on same level from slipping, tripping and Fabiola Vilchis PA stumbling without subsequent striking against object, subsequent encounter 11/02/2018 M17.12 Unilateral primary osteoarthritis, left knee Fabiola Vilchis PA 11/02/2018 M23.8x2 Other internal derangements of left knee Fabiola Vilchis PA 11/02/2018 W01.0xxA Fall on same level from slipping, tripping and Fabiola Vilchis PA stumbling without subsequent striking against object, initial encounter Plan of Treatment Future Appointment(s):02/22/2019 2:00 pm - Fabiola Vilchis PA at [facility]opa[facility] Tsxtbb8001/10/2019 - Fabiola Vilchis PAS93.402A Sprain of unspecified ligament of left ankle, initial encounterComments:At this point I do not appreciate a fracture. It is recommended that he continue in the Cam Walker and crutches if needed. I am okay if he attempts to weight-bear. Gentle range of motion. Ice , elevation, and rest. Oral anti-inflammatories if he can tolerate them. Recheck him back in 3 weeks.M25.572 Pain in left ankle and joints of left footAllFollow up:3 wk Functional Status Description No Information Available Mental Status Description No Information Available Referrals Description No Information Available
--- OUTSIDE RECORDS SUMMARY | 2019-03-13 15:08 | XMS REPORT | Continuity of Care Document ---
:1965 External Reference #:[id number] Author Name Fabiola Vilchis PA Address [address] [facility] 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 Problems Active Problems Provider Date Chondromalacia of [...] Use Denies Drug Use Smoking Status Reviewed: 01/28/19 Patient denies history of smoking Exercise Type/Frequency [...] day as needed Soothing - 12 Hour [place] 2 Sprays Unknown Nasal Decongestant Intranasally Two [...] CPT Code Status Date Vaccine Lot # [id number] Given 03/12/2017 Tdap injection [id number] Given 09/11/1997 Tetnus Injection Vital Signs Date Vital Result Comment 01/28/2019 1:21pm BP Systolic 118 mmHg BP Diastolic 58 mmHg 01/10/2019 1:03pm BP Systolic 122 mmHg BP Diastolic 83 mmHg Body Temperature 96.7 F Heart Rate 70 /min Height 66 inches 5'6" Weight 179.00 lb BMI (Body Mass Index) 28.9 kg/m2 BSA (Body Surface Area) 1.91 m2 [place] body weight in kilograms 64 kg O2 % BldC Oximetry 100 % Results Test Acquired Date Facility Test Result H/L Range Note CBC 11/25/2018 [facility] White Blood 5.7 K/uL Normal 3.4-10.5 1 W/Automated [address] Count Diff [place], [place] [id number] [phone] Red Blood Count 5.45 M/uL Normal 4.20-5.80 [...] 33.0-73.0 Lymph % 39.1 % Normal 20.0-42.0 [place] % 8.5 % Normal 0.0-10.0 Eo% 4.8 % Normal 0.0-6.6 Bas% 0.7 % Normal 0.0-1.1 Immature Grans 0.4 % Normal 0.0-5.0 NRBC % 0.0 /100WBC < 10/ 100 WBC Neut# 2.65 K/uL Normal 1.8-7.0 Lymph # 2.22 K/uL Normal 1.0-4.0 [place] # 0.48 K/uL Normal 0.0-0.8 Eos # 0.27 K/uL Normal 0.0-0.5 Baso # 0.04 K/uL Normal 0.0-0.1 Immature Grans Absolute 0.02 K/uL NRBC # 0.00 K/uL Comprehensive 11/25/2018 [facility] Glucose 89 mg/dL Normal 74-106 Metabolic Panel [address] [place] [address] [phone] BUN 23 mg/dL High 7-18 Creatinine 1.1 [...] 83 U/L Normal 45-117 CBC W/Automated 11/21/2018 [facility] White Blood 6.5 K/uL Normal 3.4-10.5 [address] [place] [address] [phone] Red Blood Count 4.91 M/uL Normal 4.20-5.80 [...] 33.0-73.0 Lymph % 36.3 % Normal 20.0-42.0 [place] % 9.7 % Normal 0.0-10.0 Eo% 3.8 % Normal 0.0-6.6 Bas% 0.9 % Normal 0.0-1.1 Immature Grans 0.5 % Normal 0.0-5.0 NRBC % 0.0 /100WBC < 10/ 100 WBC Neut# 3.18 K/uL Normal 1.8-7.0 Lymph # 2.36 K/uL Normal 1.0-4.0 [place] # 0.63 K/uL Normal 0.0-0.8 Eos # 0.25 K/uL Normal 0.0-0.5 Baso # 0.06 K/uL Normal 0.0-0.1 Immature Grans Absolute 0.03 K/uL NRBC # 0.00 K/uL Laboratory test 11/21/2018 [facility] Valproic 69.1 Normal 50.0-100.[address] Acid ug/mL [place], [place] [address] [phone] Comprehensive 11/21/2018 [facility] Glucose 109 High 74-106 Metabolic Panel [address] mg/[place] [address] [phone] BUN 17 mg/dL Normal 7-18 Creatinine 1.0 [...] 45-117 Ua RFX Micro & Culture 11/21/2018 [facility] Urine Color Yellow Yellow II [address] [place] [address] [phone] Urine Clarity Clear Clear Urine Glucose - Dipstick NEGATIVE mg/dL Negative Urine Bilirubin - Dipstick NEGATIVE Negative Urine Ketone TRACE mg/dL Negative Urine Specific [place] 1.030 Normal 1.010-1.030 Urine Blood NEGATIVE 0-2 Urine PH 6.5 Normal 6.5-7.5 Urine Protein - Dipstick NEGATIVE mg/dL Negative Urine Urobilinogen - Dipstick < 2.0 mg/dL < 2.0 Urine Nitrite - Dipstick NEGATIVE Negative Urine Leuk Esterase NEGATIVE Negative Source: URINE, CLEAN CAT <SEE NOTE> 7 CBC W/Automated 10/30/2018 [facility] White Blood 6.3 K/uL Normal 3.4-10.5 [address] [place] [address] [phone] Red Blood Count 5.06 M/uL Normal 4.20-5.80 [...] 33.0-73.0 Lymph % 29.8 % Normal 20.0-42.0 [place] % 10.5 % High 0.0-10.0 Eo% 2.7 % Normal 0.0-6.6 Bas% 0.8 % Normal 0.0-1.1 Immature Grans 0.5 % Normal 0.0-5.0 NRBC % 0.0 /100WBC < 10/ 100 WBC Neut# 3.49 K/uL Normal 1.8-7.0 Lymph # 1.87 K/uL Normal 1.0-4.0 [place] # 0.66 K/uL Normal 0.0-0.8 Eos # 0.17 K/uL Normal 0.0-0.5 Baso # 0.05 K/uL Normal 0.0-0.1 Immature Grans Absolute 0.03 K/uL NRBC # 0.00 K/uL Comprehensive Metabolic 10/30/2018 [facility] Glucose 127 mg/dL High 74-106 Panel [address] [place] [address] [phone] BUN 19 mg/dL High 7-18 Creatinine 1.1 [...] 45-117 Ua RFX Micro & Culture 10/24/2018 [facility] Urine Color YELLOW Yellow 11 II [address] [place] [address] [phone] Urine Clarity CLEAR Clear Urine Glucose - Dipstick NEGATIVE mg/dL Negative Urine Bilirubin - Dipstick NEGATIVE Negative Urine Ketone NEGATIVE mg/dL Negative Urine Specific [place] 1.020 Normal 1.010-1.030 Urine Blood NEGATIVE Negative Urine PH 5.5 Low 6.5-7.5 Urine Protein - Dipstick NEGATIVE mg/dL Negative Urine Urobilinogen - Dipstick 0.2 E.U./dL Normal 0.2-1.0 Urine Nitrite - Dipstick NEGATIVE Negative Urine Leuk Esterase NEGATIVE Negative Source: URINE, CLEAN CAT <SEE NOTE> 12 Ua RFX Micro & Culture 10/21/2018 [facility] Urine Color YELLOW Yellow [address] [place] [address] [phone] Urine Clarity CLEAR Clear Urine Glucose - Dipstick NEGATIVE mg/dL Negative Urine Bilirubin - Dipstick NEGATIVE Negative Urine Ketone 15 mg/dL High Negative Urine Specific [place] 1.025 Normal 1.010-1.030 Urine Blood NEGATIVE Negative Urine PH 6.0 Low 6.5-7.5 Urine Protein - Dipstick NEGATIVE mg/dL Negative Urine Urobilinogen - Dipstick 2.0 E.U./dL High 0.2-1.0 Urine Nitrite - Dipstick NEGATIVE Negative Urine Leuk Esterase NEGATIVE Negative Source: URINE, CLEAN CAT <SEE NOTE> 14 CBC W/Automated 10/21/2018 [facility] White Blood 7.4 K/uL Normal 3.4-10.[address] [place] [address] [phone] Red Blood Count 5.51 M/uL Normal 4.20-5.80 [...] 33.0-73.0 Lymph % 35.8 % Normal 20.0-42.0 [place] % 8.4 % Normal 0.0-10.0 Eo% 3.4 % Normal 0.0-6.6 Bas% 0.9 % Normal 0.0-1.1 Immature Grans 0.4 % Normal 0.0-5.0 NRBC % 0.0 /100WBC < 10/ 100 WBC Neut# 3.76 K/uL Normal 1.8-7.0 Lymph # 2.64 K/uL Normal 1.0-4.0 [place] # 0.62 K/uL Normal 0.0-0.8 Eos # 0.25 K/uL Normal 0.0-0.5 Baso # 0.07 K/uL Normal 0.0-0.1 Immature Grans Absolute 0.03 K/uL NRBC # 0.00 K/uL Comprehensive 10/21/2018 [facility] Glucose 89 mg/dL Normal 74-106 Metabolic Panel [address] [place] [address] [phone] BUN 22 mg/dL High 7-18 Creatinine 1.2 [...] Phosphatase 75 U/L Normal 45-117 Laboratory 10/21/2018 [facility] Valproic 107.4 High 50.0-100.0 test finding [address] Acid ug/[place] [address] [phone] CBC 10/10/2018 [facility] White Blood 6.8 K/uL Normal 3.4-10.5 17 W/Automated [address] Count Diff [place], [place] [address] [phone] Red Blood Count 5.40 M/uL Normal 4.20-5.80 [...] 33.0-73.0 Lymph % 39.0 % Normal 20.0-42.0 [place] % 8.2 % Normal 0.0-10.0 Eo% 2.7 % Normal 0.0-6.6 Bas% 0.7 % Normal 0.0-1.1 Immature Grans 0.3 % Normal 0.0-5.0 NRBC % 0.0 /100WBC < 10/ 100 WBC Neut# 3.33 K/uL Normal 1.8-7.0 Lymph # 2.65 K/uL Normal 1.0-4.0 [place] # 0.56 K/uL Normal 0.0-0.8 Eos # 0.18 K/uL Normal 0.0-0.5 Baso # 0.05 K/uL Normal 0.0-0.1 Immature Grans Absolute 0.02 K/uL NRBC # 0.00 K/uL Comprehensive 10/10/2018 [facility] Glucose 96 mg/dL Normal 74-106 Metabolic Panel [address] [place], [place] [address] [phone] BUN 18 mg/dL Normal 7-18 Creatinine 1.1 [...] 78 U/L Normal 45-117 Laboratory test 09/22/2018 [facility] Valproic 5.5 Low 50.0-100.0 [address] Acid ug/[place] [address] [phone] Comprehensive 09/22/2018 [facility] Glucose 102 Normal 74-106 Metabolic Panel [address] mg/[place] [address] [phone] BUN 14 mg/dL Normal 7-18 Creatinine 1.1 [...] 45-117 Ua RFX Micro & Culture 09/22/2018 [facility] Urine Color YELLOW Yellow II [address] [place] [address] [phone] Urine Clarity CLEAR Clear Urine Glucose - Dipstick NEGATIVE mg/dL Negative Urine Bilirubin - Dipstick NEGATIVE Negative Urine Ketone NEGATIVE mg/dL Negative Urine Specific [place] 1.025 Normal 1.010-1.030 Urine Blood NEGATIVE Negative Urine PH 6.5 Normal 6.5-7.5 Urine Protein - Dipstick TRACE mg/dL Negative Urine Urobilinogen - Dipstick 0.2 E.U./dL Normal 0.2-1.0 Urine Nitrite - Dipstick NEGATIVE Negative Urine Leuk Esterase NEGATIVE Negative Source: URINE, CLEAN CAT <SEE NOTE> 23 CBC W/Automated 09/22/2018 [facility] White Blood 6.5 K/uL Normal 3.4-10.[address] [place] [address] [phone] Red Blood Count 5.45 M/uL Normal 4.20-5.80 [...] 33.0-73.0 Lymph % 29.2 % Normal 20.0-42.0 [place] % 9.3 % Normal 0.0-10.0 Eo% 2.3 % Normal 0.0-6.6 Bas% 0.8 % Normal 0.0-1.1 Immature Grans 0.3 % Normal 0.0-5.0 NRBC % 0.0 /100WBC < 10/ 100 WBC Neut# 3.77 K/uL Normal 1.8-7.0 Lymph # 1.89 K/uL Normal 1.0-4.0 [place] # 0.60 K/uL Normal 0.0-0.8 Eos # 0.15 K/uL Normal 0.0-0.5 Baso # 0.05 K/uL Normal 0.0-0.1 Immature Grans Absolute 0.02 K/uL NRBC # 0.00 K/uL Ua RFX Micro & Culture 08/28/2018 [facility] Urine Color YELLOW Yellow II [address] [place] [address] [phone] Urine Clarity CLEAR Clear Urine Glucose - Dipstick NEGATIVE mg/dL Negative Urine Bilirubin - Dipstick NEGATIVE Negative Urine Ketone NEGATIVE mg/dL Negative Urine Specific [place] 1.015 Normal 1.010-1.030 Urine Blood NEGATIVE Negative Urine PH 7.5 Normal 6.5-7.5 Urine Protein - Dipstick NEGATIVE mg/dL Negative Urine Urobilinogen - Dipstick 0.2 E.U./dL Normal 0.2-1.0 Urine Nitrite - Dipstick NEGATIVE Negative Urine Leuk Esterase NEGATIVE Negative Source: URINE, CLEAN CAT <SEE NOTE> 24 Comprehensive 08/28/2018 [facility] Glucose 100 mg/dL Normal 74-106 Metabolic Panel [address] [place] [address] [phone] BUN 20 mg/dL High 7-18 Creatinine 1.2 [...] 82 U/L Normal 45-117 Laboratory test 08/28/2018 [facility] Lipase 149 U/L Normal 56-289 finding [address] [place] [address] [phone] CBC W/Automated 08/28/2018 [facility] White Blood 6.6 K/uL Normal 3.4-10.[address] [place] [address] [phone] Red Blood Count 5.25 M/uL Normal 4.20-5.80 [...] 33.0-73.0 Lymph % 34.1 % Normal 20.0-42.0 [place] % 8.3 % Normal 0.0-10.0 Eo% 3.0 % Normal 0.0-6.6 Bas% 0.9 % Normal 0.0-1.1 Immature Grans 0.3 % Normal 0.0-5.0 NRBC % 0.0 /100WBC < 10/ 100 WBC Neut# 3.54 K/uL Normal 1.8-7.0 Lymph # 2.26 K/uL Normal 1.0-4.0 [place] # 0.55 K/uL Normal 0.0-0.8 Eos # 0.20 K/uL Normal 0.0-0.5 Baso # 0.06 K/uL Normal 0.0-0.1 Immature Grans Absolute 0.02 K/uL NRBC # 0.00 K/uL Ua RFX Micro & Culture 08/07/2018 [facility] Urine Color YELLOW Yellow [address] [place] [address] [phone] Urine Clarity [place] Clear Urine Glucose - Dipstick NEGATIVE mg/dL Negative Urine Bilirubin - Dipstick NEGATIVE Negative Urine Ketone 15 mg/dL High Negative Urine Specific [place] 1.010 Normal 1.010-1.030 Urine Blood NEGATIVE Negative Urine PH 7.0 Normal 6.5-7.5 Urine Protein - Dipstick NEGATIVE mg/dL Negative Urine Urobilinogen - Dipstick 0.2 E.U./dL Normal 0.2-1.0 Urine Nitrite - Dipstick NEGATIVE Negative Urine Leuk Esterase NEGATIVE Negative Source: URINE, CLEAN CAT <SEE NOTE> 28 CBC W/Automated 08/07/2018 [facility] White Blood 6.5 K/uL Normal 3.4-10.[address] [place] [address] [phone] Red Blood Count 5.31 M/uL Normal 4.20-5.80 [...] 33.0-73.0 Lymph % 23.2 % Normal 20.0-42.0 [place] % 8.5 % Normal 0.0-10.0 Eo% 0.9 % Normal 0.0-6.6 Bas% 0.8 % Normal 0.0-1.1 Immature Grans 0.3 % Normal 0.0-5.0 NRBC % 0.0 /100WBC < 10/ 100 WBC Neut# 4.29 K/uL Normal 1.8-7.0 Lymph # 1.50 K/uL Normal 1.0-4.0 [place] # 0.55 K/uL Normal 0.0-0.8 Eos # 0.06 K/uL Normal 0.0-0.5 Baso # 0.05 K/uL Normal 0.0-0.1 Immature Grans Absolute 0.02 K/uL NRBC # 0.00 K/uL Comprehensive 08/07/2018 [facility] Glucose 96 mg/dL Normal 74-106 Metabolic Panel [address] [place], [place] [address] [phone] BUN 16 mg/dL Normal 7-18 Creatinine 1.0 [...] U/L Normal 45-117 Laboratory test finding 08/07/2018 [facility] Lipase 112 U/L Normal 56-289 [address] [place] [address] [phone] 1 LIGHT HEADED DIZZINESS 2 Note: Persistent [...] is suggested. Procedures Date Code Description Status 01/28/2019 56971 Application short leg cast (below knee to toes) Completed 01/10/2019 67596 Radiology, Foot, Complete-3 Views Completed Medical Devices Description No Information Available Encounters Type Date Location Provider Dx Diagnosis Office Visit 01/28/2019 Orthopaedic Office Fabiola Vilchis, S93.402D Sprain of 1:45p PA unspecified ligament of left ankle, subs encntr Office Visit 01/10/2019 Orthopaedic Office Fabiola Vilchis, M25.572 Pain in left ankle 1:30p PA and joints of left foot S93.402A Sprain of unspecified ligament of left ankle, init encntr Office Visit 12/23/2018 Florencia Vilchis, M22.42 Chondromalacia 2:30p Office FabiolaKAELYN bhagat patellae, left knee Office Visit 12/09/2018 Florencia Vilchis M17.12 Unilateral primary 1:45p Office Fabiola, PA [...] object, init Assessments Date Code Description Provider 01/28/2019 S93.402D Sprain of unspecified ligament of left ankle, Fabiola Vilchis PA subsequent encounter 01/10/2019 M25.572 Pain in left ankle and joints of left foot Fabiola Vilchis PA 01/10/2019 S93.402A Sprain of unspecified ligament of left ankle, Fabiola Vilchis PA initial encounter 12/23/2018 M22.42 Chondromalacia patellae, left knee Fabiola [...] pm - Fabiola Vilchis PA at Orthopa[facility] Kdxkhy2001/28/2019 - Fabiola Vilchis PAS93.402D Sprain of unspecified ligament of left ankle, subsequent encounterComments:He's not feeling any better with the cam walker. I have offered him a cast and he would like to proceed with that. A short leg cast was applied. He will be nonweightbearing. He was offered a walker andknee scooter but I do not think he needs a wheelchair. He will follow up in 1 month. Functional Status Description No Information Available Mental Status Description No Information Available Referrals Description No Information Available
--- OUTSIDE RECORDS SUMMARY | 2019-03-13 15:08 | XMS REPORT | Continuity of Care Document ---
:1965 External Reference #:[id number] Author Name Fabiola Vilchis PA Address [address] [facility] 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 Problems Active Problems Provider Date Chondromalacia of [...] Use Denies Drug Use Smoking Status Reviewed: 02/08/19 Patient denies history of smoking Exercise Type/Frequency [...] day as needed Soothing - 12 Hour [place] 2 Sprays Unknown Nasal Decongestant Intranasally Two [...] CPT Code Status Date Vaccine Lot # [id number] Given 03/12/2017 Tdap injection [id number] Given 09/11/1997 Tetnus Injection Vital Signs Date Vital Result Comment 02/08/2019 10:10am BP Systolic Sitting Right Arm 120 mmHg BP Diastolic Sitting Right Arm 81 mmHg 01/28/2019 1:21pm BP Systolic 118 mmHg BP Diastolic 58 mmHg Results Test Acquired Date Facility Test Result H/L Range Note CBC 11/25/2018 [facility] White Blood 5.7 K/uL Normal 3.4-10.5 1 W/Automated [address] [place] [address] [phone] Red Blood Count 5.45 M/uL Normal 4.20-5.80 [...] 33.0-73.0 Lymph % 39.1 % Normal 20.0-42.0 Moca % 8.5 % Normal 0.0-10.0 Eo% 4.8 % Normal 0.0-6.6 Bas% 0.7 % Normal 0.0-1.1 Immature Grans 0.4 % Normal 0.0-5.0 NRBC % 0.0 /100WBC < 10/ 100 WBC Neut# 2.65 K/uL Normal 1.8-7.0 Lymph # 2.22 K/uL Normal 1.0-4.0 Moca # 0.48 K/uL Normal 0.0-0.8 Eos # 0.27 K/uL Normal 0.0-0.5 Baso # 0.04 K/uL Normal 0.0-0.1 Immature Grans Absolute 0.02 K/uL NRBC # 0.00 K/uL Comprehensive 11/25/2018 [facility] Glucose 89 mg/dL Normal 74-106 Metabolic Panel [address] [place] [address] [phone] BUN 23 mg/dL High 7-18 Creatinine 1.1 [...] 83 U/L Normal 45-117 CBC W/Automated 11/21/2018 [facility] White Blood 6.5 K/uL Normal 3.4-10.5 [address] [place] [address] [phone] Red Blood Count 4.91 M/uL Normal 4.20-5.80 [...] 33.0-73.0 Lymph % 36.3 % Normal 20.0-42.0 Moca % 9.7 % Normal 0.0-10.0 Eo% 3.8 % Normal 0.0-6.6 Bas% 0.9 % Normal 0.0-1.1 Immature Grans 0.5 % Normal 0.0-5.0 NRBC % 0.0 /100WBC < 10/ 100 WBC Neut# 3.18 K/uL Normal 1.8-7.0 Lymph # 2.36 K/uL Normal 1.0-4.0 Moca # 0.63 K/uL Normal 0.0-0.8 Eos # 0.25 K/uL Normal 0.0-0.5 Baso # 0.06 K/uL Normal 0.0-0.1 Immature Grans Absolute 0.03 K/uL NRBC # 0.00 K/uL Laboratory test 11/21/2018 [facility] Valproic 69.1 Normal 50.0-100.[address] Acid ug/mL [place], [place] [id number] [phone] Comprehensive 11/21/2018 [facility] Glucose 109 High 74-106 Metabolic Panel [address] mg/[place] [address] [phone] BUN 17 mg/dL Normal 7-18 Creatinine 1.0 [...] 45-117 Ua RFX Micro & Culture 11/21/2018 [facility] Urine Color Yellow Yellow II [address] [place] [address] [phone] Urine Clarity Clear Clear Urine Glucose - Dipstick NEGATIVE mg/dL Negative Urine Bilirubin - Dipstick NEGATIVE Negative Urine Ketone TRACE mg/dL Negative Urine Specific [place] 1.030 Normal 1.010-1.030 Urine Blood NEGATIVE 0-2 Urine PH 6.5 Normal 6.5-7.5 Urine Protein - Dipstick NEGATIVE mg/dL Negative Urine Urobilinogen - Dipstick < 2.0 mg/dL < 2.0 Urine Nitrite - Dipstick NEGATIVE Negative Urine Leuk Esterase NEGATIVE Negative Source: URINE, CLEAN CAT <SEE NOTE> 7 CBC W/Automated 10/30/2018 [facility] White Blood 6.3 K/uL Normal 3.4-10.5 [address] [place] [address] [phone] Red Blood Count 5.06 M/uL Normal 4.20-5.80 [...] 33.0-73.0 Lymph % 29.8 % Normal 20.0-42.0 Moca % 10.5 % High 0.0-10.0 Eo% 2.7 % Normal 0.0-6.6 Bas% 0.8 % Normal 0.0-1.1 Immature Grans 0.5 % Normal 0.0-5.0 NRBC % 0.0 /100WBC < 10/ 100 WBC Neut# 3.49 K/uL Normal 1.8-7.0 Lymph # 1.87 K/uL Normal 1.0-4.0 Moca # 0.66 K/uL Normal 0.0-0.8 Eos # 0.17 K/uL Normal 0.0-0.5 Baso # 0.05 K/uL Normal 0.0-0.1 Immature Grans Absolute 0.03 K/uL NRBC # 0.00 K/uL Comprehensive Metabolic 10/30/2018 [facility] Glucose 127 mg/dL High 74-106 Panel [address] [place] [address] [phone] BUN 19 mg/dL High 7-18 Creatinine 1.1 [...] 45-117 Ua RFX Micro & Culture 10/24/2018 [facility] Urine Color YELLOW Yellow 11 II [address] [place] [address] [phone] Urine Clarity CLEAR Clear Urine Glucose - Dipstick NEGATIVE mg/dL Negative Urine Bilirubin - Dipstick NEGATIVE Negative Urine Ketone NEGATIVE mg/dL Negative Urine Specific [place] 1.020 Normal 1.010-1.030 Urine Blood NEGATIVE Negative Urine PH 5.5 Low 6.5-7.5 Urine Protein - Dipstick NEGATIVE mg/dL Negative Urine Urobilinogen - Dipstick 0.2 E.U./dL Normal 0.2-1.0 Urine Nitrite - Dipstick NEGATIVE Negative Urine Leuk Esterase NEGATIVE Negative Source: URINE, CLEAN CAT <SEE NOTE> 12 Ua RFX Micro & Culture 10/21/2018 [facility] Urine Color YELLOW Yellow [address] [place] [address] [phone] Urine Clarity CLEAR Clear Urine Glucose - Dipstick NEGATIVE mg/dL Negative Urine Bilirubin - Dipstick NEGATIVE Negative Urine Ketone 15 mg/dL High Negative Urine Specific [place] 1.025 Normal 1.010-1.030 Urine Blood NEGATIVE Negative Urine PH 6.0 Low 6.5-7.5 Urine Protein - Dipstick NEGATIVE mg/dL Negative Urine Urobilinogen - Dipstick 2.0 E.U./dL High 0.2-1.0 Urine Nitrite - Dipstick NEGATIVE Negative Urine Leuk Esterase NEGATIVE Negative Source: URINE, CLEAN CAT <SEE NOTE> 14 CBC W/Automated 10/21/2018 [facility] White Blood 7.4 K/uL Normal 3.4-10.[address] [place] [address] [phone] Red Blood Count 5.51 M/uL Normal 4.20-5.80 [...] 33.0-73.0 Lymph % 35.8 % Normal 20.0-42.0 Moca % 8.4 % Normal 0.0-10.0 Eo% 3.4 % Normal 0.0-6.6 Bas% 0.9 % Normal 0.0-1.1 Immature Grans 0.4 % Normal 0.0-5.0 NRBC % 0.0 /100WBC < 10/ 100 WBC Neut# 3.76 K/uL Normal 1.8-7.0 Lymph # 2.64 K/uL Normal 1.0-4.0 Moca # 0.62 K/uL Normal 0.0-0.8 Eos # 0.25 K/uL Normal 0.0-0.5 Baso # 0.07 K/uL Normal 0.0-0.1 Immature Grans Absolute 0.03 K/uL NRBC # 0.00 K/uL Comprehensive 10/21/2018 [facility] Glucose 89 mg/dL Normal 74-106 Metabolic Panel [address] [place] [address] [phone] BUN 22 mg/dL High 7-18 Creatinine 1.2 [...] Phosphatase 75 U/L Normal 45-117 Laboratory 10/21/2018 [facility] Valproic 107.4 High 50.0-100.0 test finding [address] Acid ug/[place] [address] [phone] CBC 10/10/2018 [facility] White Blood 6.8 K/uL Normal 3.4-10.5 17 W/Automated [address] [place] [address] [phone] Red Blood Count 5.40 M/uL Normal 4.20-5.80 [...] 33.0-73.0 Lymph % 39.0 % Normal 20.0-42.0 Moca % 8.2 % Normal 0.0-10.0 Eo% 2.7 % Normal 0.0-6.6 Bas% 0.7 % Normal 0.0-1.1 Immature Grans 0.3 % Normal 0.0-5.0 NRBC % 0.0 /100WBC < 10/ 100 WBC Neut# 3.33 K/uL Normal 1.8-7.0 Lymph # 2.65 K/uL Normal 1.0-4.0 Moca # 0.56 K/uL Normal 0.0-0.8 Eos # 0.18 K/uL Normal 0.0-0.5 Baso # 0.05 K/uL Normal 0.0-0.1 Immature Grans Absolute 0.02 K/uL NRBC # 0.00 K/uL [facility] 10/10/2018 [facility] Glucose 96 mg/dL Normal 74-106 Metabolic Panel [address] [place] [address] [phone] BUN 18 mg/dL Normal 7-18 Creatinine 1.1 [...] 78 U/L Normal 45-117 Laboratory test 09/22/2018 [facility] Valproic 5.5 Low 50.0-100.0 [address] Acid ug/[place] [address] [phone] Comprehensive 09/22/2018 [facility] Glucose 102 Normal 74-106 Metabolic Panel [address] mg/[place] [address] [phone] BUN 14 mg/dL Normal 7-18 Creatinine 1.1 [...] 45-117 Ua RFX Micro & Culture 09/22/2018 [facility] Urine Color YELLOW Yellow II [address] [place] [address] [phone] Urine Clarity CLEAR Clear Urine Glucose - Dipstick NEGATIVE mg/dL Negative Urine Bilirubin - Dipstick NEGATIVE Negative Urine Ketone NEGATIVE mg/dL Negative Urine Specific [place] 1.025 Normal 1.010-1.030 Urine Blood NEGATIVE Negative Urine PH 6.5 Normal 6.5-7.5 Urine Protein - Dipstick TRACE mg/dL Negative Urine Urobilinogen - Dipstick 0.2 E.U./dL Normal 0.2-1.0 Urine Nitrite - Dipstick NEGATIVE Negative Urine Leuk Esterase NEGATIVE Negative Source: URINE, CLEAN CAT <SEE NOTE> 23 CBC W/Automated 09/22/2018 [facility] White Blood 6.5 K/uL Normal 3.4-10.[address] [place] [address] [phone] Red Blood Count 5.45 M/uL Normal 4.20-5.80 [...] 33.0-73.0 Lymph % 29.2 % Normal 20.0-42.0 Moca % 9.3 % Normal 0.0-10.0 Eo% 2.3 % Normal 0.0-6.6 Bas% 0.8 % Normal 0.0-1.1 Immature Grans 0.3 % Normal 0.0-5.0 NRBC % 0.0 /100WBC < 10/ 100 WBC Neut# 3.77 K/uL Normal 1.8-7.0 Lymph # 1.89 K/uL Normal 1.0-4.0 Moca # 0.60 K/uL Normal 0.0-0.8 Eos # 0.15 K/uL Normal 0.0-0.5 Baso # 0.05 K/uL Normal 0.0-0.1 Immature Grans Absolute 0.02 K/uL NRBC # 0.00 K/uL Ua RFX Micro & Culture 08/28/2018 [facility] Urine Color YELLOW Yellow II [address] [place] [address] [phone] Urine Clarity CLEAR Clear Urine Glucose - Dipstick NEGATIVE mg/dL Negative Urine Bilirubin - Dipstick NEGATIVE Negative Urine Ketone NEGATIVE mg/dL Negative Urine Specific [place] 1.015 Normal 1.010-1.030 Urine Blood NEGATIVE Negative Urine PH 7.5 Normal 6.5-7.5 Urine Protein - Dipstick NEGATIVE mg/dL Negative Urine Urobilinogen - Dipstick 0.2 E.U./dL Normal 0.2-1.0 Urine Nitrite - Dipstick NEGATIVE Negative Urine Leuk Esterase NEGATIVE Negative Source: URINE, CLEAN CAT <SEE NOTE> 24 Comprehensive 08/28/2018 [facility] Glucose 100 mg/dL Normal 74-106 Metabolic Panel [address] [place] [address] [phone] BUN 20 mg/dL High 7-18 Creatinine 1.2 [...] 82 U/L Normal 45-117 Laboratory test 08/28/2018 [facility] Lipase 149 U/L Normal 56-289 finding [address] [place] [address] [phone] CBC W/Automated 08/28/2018 [facility] White Blood 6.6 K/uL Normal 3.4-10.5 Diff [address] [place] [address] [phone] Red Blood Count 5.25 M/uL Normal 4.20-5.80 [...] 33.0-73.0 Lymph % 34.1 % Normal 20.0-42.0 Moca % 8.3 % Normal 0.0-10.0 Eo% 3.0 % Normal 0.0-6.6 Bas% 0.9 % Normal 0.0-1.1 Immature Grans 0.3 % Normal 0.0-5.0 NRBC % 0.0 /100WBC < 10/ 100 WBC Neut# 3.54 K/uL Normal 1.8-7.0 Lymph # 2.26 K/uL Normal 1.0-4.0 Moca # 0.55 K/uL Normal 0.0-0.8 Eos # 0.20 K/uL Normal 0.0-0.5 Baso # 0.06 K/uL Normal 0.0-0.1 Immature Grans Absolute 0.02 K/uL NRBC # 0.00 K/uL 1 LIGHT HEADED DIZZINESS 2 Note: Persistent [...] suggested. Procedures Date Code Description Status 01/28/2019 61922 Application short leg cast (below knee to toes) Completed 01/10/2019 31319 Radiology, Foot, Complete-3 Views Completed Medical Devices Description No Information Available Encounters Type Date Location Provider Dx Diagnosis Office Visit 02/08/2019 Orthopaedic Office Fabiola Vilchis, S93.402D Sprain of 10:30a [place] unspecified ligament of left ankle, subs encntr Office Visit 01/28/2019 Orthopaedic Office Fabiola Vilchis, [...] against object, subs Office Visit 11/02/2018 Orthopaedic Deng, M17.12 Unilateral primary 11:00a Office KAELYN Hicks osteoarthritis, left knee M23.8x2 Other internal derangements of left knee W01.0xxA Fall same lev from slip/trip w/o strike against object, init Assessments Date Code Description Provider 02/08/2019 S93.402D Sprain of unspecified ligament of left ankle, Fabiola Vilchis PA subsequent encounter 01/28/2019 S93.402D Sprain of unspecified ligament of [...] against object, initial encounter Plan of Treatment 02/08/2019 - Fabiola Vilchis PAS93.402D Sprain of unspecified ligament of left ankle, subsequent encounterNew Therapy:Physical TherapyComments:I have recommended that he start a course of physical therapy. Overall he is already doing quite well. He'll return to our office on an as-needed basis. Brace if needed which she really has.AllFollow up:prn Functional Status Description No Information Available Mental Status Description No Information Available Referrals Description No Information Available
--- OUTSIDE RECORDS SUMMARY | 2019-03-13 15:08 | XMS REPORT | Continuity of Care Document ---
:1965 External Reference #:[id number] Author Name Fabiola Vilchis PA Address [address] [facility] [facility] [place] [address] Care Team Providers Name Role Phone Champ Barrett PA - Physician Care Team Information Emergency Room Physician [phone] Package Pick Up Problems Active Problems Provider Date Chondromalacia of [...] Use Denies Drug Use Smoking Status Reviewed: 02/23/19 Patient denies history of smoking Exercise Type/Frequency [...] day as needed Soothing - 12 Hour [place] 2 Sprays Unknown Nasal Decongestant Intranasally Two [...] CPT Code Status Date Vaccine Lot # [id number] Given 03/12/2017 Tdap injection [id number] Given 09/11/1997 Tetnus Injection Vital Signs Date Vital Result Comment 02/23/2019 9:10am BP Systolic 119 mmHg BP Diastolic 79 mmHg Body Temperature 96.6 F Heart Rate 72 /min Weight 185.00 lb O2 % BldC Oximetry 99 % 02/08/2019 10:10am BP Systolic Sitting Right Arm 120 mmHg BP Diastolic Sitting Right Arm 81 mmHg Results Test Acquired Date Facility Test Result H/L Range Note CBC 11/25/2018 [facility] White Blood 5.7 K/uL Normal 3.4-10.5 1 W/Automated [address] [place] [address] [phone] Red Blood Count 5.45 M/uL Normal 4.20-5.80 [...] 33.0-73.0 Lymph % 39.1 % Normal 20.0-42.0 [place] % 8.5 % Normal 0.0-10.0 Eo% 4.8 % Normal 0.0-6.6 Bas% 0.7 % Normal 0.0-1.1 Immature Grans 0.4 % Normal 0.0-5.0 NRBC % 0.0 /100WBC < 10/ 100 WBC Neut# 2.65 K/uL Normal 1.8-7.0 Lymph # 2.22 K/uL Normal 1.0-4.0 [place] # 0.48 K/uL Normal 0.0-0.8 Eos # 0.27 K/uL Normal 0.0-0.5 Baso # 0.04 K/uL Normal 0.0-0.1 Immature Grans Absolute 0.02 K/uL NRBC # 0.00 K/uL Comprehensive 11/25/2018 [facility] Glucose 89 mg/dL Normal 74-106 Metabolic Panel [address] [place] [address] [phone] BUN 23 mg/dL High 7-18 Creatinine 1.1 [...] 83 U/L Normal 45-117 CBC W/Automated 11/21/2018 [facility] White Blood 6.5 K/uL Normal 3.4-10.5 [address] [place] [address] [phone] Red Blood Count 4.91 M/uL Normal 4.20-5.80 [...] 33.0-73.0 Lymph % 36.3 % Normal 20.0-42.0 [place] % 9.7 % Normal 0.0-10.0 Eo% 3.8 % Normal 0.0-6.6 Bas% 0.9 % Normal 0.0-1.1 Immature Grans 0.5 % Normal 0.0-5.0 NRBC % 0.0 /100WBC < 10/ 100 WBC Neut# 3.18 K/uL Normal 1.8-7.0 Lymph # 2.36 K/uL Normal 1.0-4.0 [place] # 0.63 K/uL Normal 0.0-0.8 Eos # 0.25 K/uL Normal 0.0-0.5 Baso # 0.06 K/uL Normal 0.0-0.1 Immature Grans Absolute 0.03 K/uL NRBC # 0.00 K/uL Ua RFX Micro & Culture 11/21/2018 [facility] Urine Color Yellow Yellow II [address] [place] [address] [phone] Urine Clarity Clear Clear Urine Glucose - Dipstick NEGATIVE mg/dL Negative Urine Bilirubin - Dipstick NEGATIVE Negative Urine Ketone TRACE mg/dL Negative Urine Specific Nettie 1.030 Normal 1.010-1.030 Urine Blood NEGATIVE 0-2 Urine PH 6.5 Normal 6.5-7.5 Urine Protein - Dipstick NEGATIVE mg/dL Negative Urine Urobilinogen - Dipstick < 2.0 mg/dL < 2.0 Urine Nitrite - Dipstick NEGATIVE Negative Urine Leuk Esterase NEGATIVE Negative Source: URINE, CLEAN CAT <SEE NOTE> 5 Comprehensive Metabolic 11/21/2018 [facility] Glucose 109 mg/dL High 74-106 Panel [address] [place] [address] [phone] BUN 17 mg/dL Normal 7-18 Creatinine 1.0 mg/dL Normal 0.6-1.3 Glom Filtration Rate, Estimate >60 mL/min >60 If >60 mL/min >60 6 BUN/Creat 17.0 ratio Sodium 141 mmol/L Normal [...] Normal 0.2-1.0 Sgot/Ast 14 U/L Low 15-37 7 SGPT/Alt 24 U/L Normal 12-78 Alkaline Phosphatase 73 U/L Normal 45-117 Laboratory test 11/21/2018 [facility] Valproic 69.1 Normal 50.0-100.[address] Acid ug/[place] [address] [phone] CBC W/Automated 10/30/2018 [facility] White Blood 6.3 K/uL Normal 3.4-10.5 [address] [place] [address] [phone] Red Blood Count 5.06 M/uL Normal 4.20-5.80 [...] 33.0-73.0 Lymph % 29.8 % Normal 20.0-42.0 [place] % 10.5 % High 0.0-10.0 Eo% 2.7 % Normal 0.0-6.6 Bas% 0.8 % Normal 0.0-1.1 Immature Grans 0.5 % Normal 0.0-5.0 NRBC % 0.0 /100WBC < 10/ 100 WBC Neut# 3.49 K/uL Normal 1.8-7.0 Lymph # 1.87 K/uL Normal 1.0-4.0 [place] # 0.66 K/uL Normal 0.0-0.8 Eos # 0.17 K/uL Normal 0.0-0.5 Baso # 0.05 K/uL Normal 0.0-0.1 Immature Grans Absolute 0.03 K/uL NRBC # 0.00 K/uL Comprehensive Metabolic 10/30/2018 [facility] Glucose 127 mg/dL High 74-106 Panel [address] [place] [address] [phone] BUN 19 mg/dL High 7-18 Creatinine 1.1 [...] 45-117 Ua RFX Micro & Culture 10/24/2018 [facility] Urine Color YELLOW Yellow 11 II [address] [place] [address] [phone] Urine Clarity CLEAR Clear Urine Glucose - Dipstick NEGATIVE mg/dL Negative Urine Bilirubin - Dipstick NEGATIVE Negative Urine Ketone NEGATIVE mg/dL Negative Urine Specific Nettie 1.020 Normal 1.010-1.030 Urine Blood NEGATIVE Negative Urine PH 5.5 Low 6.5-7.5 Urine Protein - Dipstick NEGATIVE mg/dL Negative Urine Urobilinogen - Dipstick 0.2 E.U./dL Normal 0.2-1.0 Urine Nitrite - Dipstick NEGATIVE Negative Urine Leuk Esterase NEGATIVE Negative Source: URINE, CLEAN CAT <SEE NOTE> 12 Laboratory test 10/21/2018 [facility] Valproic 107.4 High 50.0-100.0 [address] Acid ug/[place] [address] [phone] Comprehensive 10/21/2018 [facility] Glucose 89 mg/dL Normal 74-106 Metabolic Panel [address] [place] [address] [phone] BUN 22 mg/dL High 7-18 Creatinine 1.2 mg/dL Normal 0.6-1.3 Glom Filtration Rate, Estimate >60 mL/min >60 If >60 mL/min >60 14 BUN/Creat 18.3 ratio Sodium 140 mmol/L Normal [...] Normal 0.2-1.0 Sgot/Ast 9 U/L Low 15-37 15 SGPT/Alt 20 U/L Normal 12-78 Alkaline Phosphatase 75 U/L Normal 45-117 CBC W/Automated 10/21/2018 [facility] White Blood 7.4 K/uL Normal 3.4-10.[address] [place] [address] [phone] Red Blood Count 5.51 M/uL Normal 4.20-5.80 [...] 33.0-73.0 Lymph % 35.8 % Normal 20.0-42.0 [place] % 8.4 % Normal 0.0-10.0 Eo% 3.4 % Normal 0.0-6.6 Bas% 0.9 % Normal 0.0-1.1 Immature Grans 0.4 % Normal 0.0-5.0 NRBC % 0.0 /100WBC < 10/ 100 WBC Neut# 3.76 K/uL Normal 1.8-7.0 Lymph # 2.64 K/uL Normal 1.0-4.0 [place] # 0.62 K/uL Normal 0.0-0.8 Eos # 0.25 K/uL Normal 0.0-0.5 Baso # 0.07 K/uL Normal 0.0-0.1 Immature Grans Absolute 0.03 K/uL NRBC # 0.00 K/uL Ua RFX Micro & Culture 10/21/2018 [facility] Urine Color YELLOW Yellow II [address] [place], [place] [address] [phone] Urine Clarity CLEAR Clear Urine Glucose - Dipstick NEGATIVE mg/dL Negative Urine Bilirubin - Dipstick NEGATIVE Negative Urine Ketone 15 mg/dL High Negative Urine Specific [place] 1.025 Normal 1.010-1.030 Urine Blood NEGATIVE Negative Urine PH 6.0 Low 6.5-7.5 Urine Protein - Dipstick NEGATIVE mg/dL Negative Urine Urobilinogen - Dipstick 2.0 E.U./dL High 0.2-1.0 Urine Nitrite - Dipstick NEGATIVE Negative Urine Leuk Esterase NEGATIVE Negative Source: URINE, CLEAN CAT <SEE NOTE> 16 CBC W/Automated 10/10/2018 [facility] White 6.8 K/uL Normal 3.4-10.5 17 Diff [address] [place] [address] Count [phone] Red Blood Count 5.40 M/uL Normal 4.20-5.80 [...] 33.0-73.0 Lymph % 39.0 % Normal 20.0-42.0 [place] % 8.2 % Normal 0.0-10.0 Eo% 2.7 % Normal 0.0-6.6 Bas% 0.7 % Normal 0.0-1.1 Immature Grans 0.3 % Normal 0.0-5.0 NRBC % 0.0 /100WBC < 10/ 100 WBC Neut# 3.33 K/uL Normal 1.8-7.0 Lymph # 2.65 K/uL Normal 1.0-4.0 [place] # 0.56 K/uL Normal 0.0-0.8 Eos # 0.18 K/uL Normal 0.0-0.5 Baso # 0.05 K/uL Normal 0.0-0.1 Immature Grans Absolute 0.02 K/uL NRBC # 0.00 K/uL [facility] 10/10/2018 [facility] Glucose 96 mg/dL Normal 74-106 Metabolic Panel [address] [place] [address] [phone] BUN 18 mg/dL Normal 7-18 Creatinine 1.1 [...] 12-78 Alkaline Phosphatase 78 U/L Normal 45-117 CBC W/Automated 09/22/2018 [facility] White 6.5 K/uL Normal 3.4-10.5 20 Diff [address] [place] [address] Count [phone] Red Blood Count 5.45 M/uL Normal 4.20-5.80 [...] 33.0-73.0 Lymph % 29.2 % Normal 20.0-42.0 [place] % 9.3 % Normal 0.0-10.0 Eo% 2.3 % Normal 0.0-6.6 Bas% 0.8 % Normal 0.0-1.1 Immature Grans 0.3 % Normal 0.0-5.0 NRBC % 0.0 /100WBC < 10/ 100 WBC Neut# 3.77 K/uL Normal 1.8-7.0 Lymph # 1.89 K/uL Normal 1.0-4.0 [place] # 0.60 K/uL Normal 0.0-0.8 Eos # 0.15 K/uL Normal 0.0-0.5 Baso # 0.05 K/uL Normal 0.0-0.1 Immature Grans Absolute 0.02 K/uL NRBC # 0.00 K/uL Ua RFX Micro & Culture 09/22/2018 [facility] Urine Color YELLOW Yellow II [address] [place] [address] [phone] Urine Clarity CLEAR Clear Urine Glucose - Dipstick NEGATIVE mg/dL Negative Urine Bilirubin - Dipstick NEGATIVE Negative Urine Ketone NEGATIVE mg/dL Negative Urine Specific [place] 1.025 Normal 1.010-1.030 Urine Blood NEGATIVE Negative Urine PH 6.5 Normal 6.5-7.5 Urine Protein - Dipstick TRACE mg/dL Negative Urine Urobilinogen - Dipstick 0.2 E.U./dL Normal 0.2-1.0 Urine Nitrite - Dipstick NEGATIVE Negative Urine Leuk Esterase NEGATIVE Negative Source: URINE, CLEAN CAT <SEE NOTE> 21 Comprehensive 09/22/2018 [facility] Glucose 102 mg/dL Normal 74-106 Metabolic Panel [address] [place] [address] [phone] BUN 14 mg/dL Normal 7-18 Creatinine 1.1 mg/dL Normal 0.6-1.3 Glom Filtration Rate, Estimate >60 mL/min >60 If >60 mL/min >60 22 BUN/Creat 12.7 ratio Sodium 142 mmol/L Normal [...] Normal 0.2-1.0 Sgot/Ast 13 U/L Low 15-37 23 SGPT/Alt 20 U/L Normal 12-78 Alkaline Phosphatase 84 U/L Normal 45-117 Laboratory test 09/22/2018 [facility] Valproic Acid 5.5 ug/mL Low 50.0-100.0 finding [address] [place] [address] [phone] 1 LIGHT HEADED DIZZINESS 2 Note: Persistent [...] Clinical correlation is suggested. 4 DIZZY 5 URINE, CLEAN CATCH 6 Note: Persistent reduction for 3 months or more in an eGFR <60 mL/min/1.73 m2 defines CKD. Patients with eGFR values >/=60 mL/min/1.73 m2 may also have CKD if evidence of persistent proteinuria is present. The original MDRD equation for estimated GFR is not valid for patients less than 18 years of age. Additional information may be found at www.kdoqi.org. 7 Values below the stated reference ranges of AST and ALT can be seen in normal populations. Clinical correlation is suggested. 8 SHAKY 9 Note: Persistent reduction for [...] HE WAS GOING TO PASS OUT 14 Note: Persistent reduction for 3 months or more in an eGFR <60 mL/min/1.73 m2 defines CKD. Patients with eGFR values >/=60 mL/min/1.73 m2 may also have CKD if evidence of persistent proteinuria is present. The original MDRD equation for estimated GFR is not valid for patients less than 18 years of age. Additional information may be found at www.kdoqi.org. 15 Values below the stated reference ranges of AST and ALT can be seen in normal populations. Clinical correlation is suggested. 16 URINE, CLEAN CATCH 17 FEELS LIKE PASSING OUT,SEIZURE POSS,WEAK 18 [...] correlation is suggested. 20 POSS SEIZURE 21 URINE, CLEAN CATCH 22 Note: Persistent reduction for 3 months or more in an eGFR <60 mL/min/1.73 m2 defines CKD. Patients with eGFR values >/=60 mL/min/1.73 m2 may also have CKD if evidence of persistent proteinuria is present. The original MDRD equation for estimated GFR is not valid for patients less than 18 years of age. Additional information may be found at www.kdoqi.org. 23 Values below the stated reference ranges of AST and ALT can be seen in normal populations. Clinical correlation is suggested. 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, left knee Office Visit 12/09/2018 Florencia Vilchis M17.12 Unilateral primary 1:45p Office [facility] Hicks osteoarthritis, left knee M23.8x2 Other internal derangements of left knee W01.0xxD Fall same lev from slip/trip w/o strike against object, subs Office Visit 11/02/2018 [facility], M17.12 Unilateral primary 11:00a Office [facility] Hicks osteoarthritis, left knee M23.8x2 Other internal derangements of left knee W01.0xxA Fall same lev from slip/trip w/o strike against object, init Assessments Date Code Description Provider 02/23/2019 M19.042 Primary osteoarthritis, left hand Fabiola Vilchis PA 02/08/2019 S93.402D Sprain of unspecified ligament of [...] object, initial encounter Plan of Treatment Future Appointment(s):03/29/2019 10:00 am - Fabiola Vilchis [facility] at [facility]/23/2019 - Fabiola Vilchis, PAM19.042 Primary osteoarthritis, left handComments:I have explained the arthritis finding to the patient and have recommended oral anti-inflammatories,ice, bracing, and rest. Patient was provided with a brace today. I recommended ibuprofen 600 mg 3 times a day with food or milk. He was educated on the potential side effects and interactions. Patient will return to the office for recheck in 1 month.AllFollow up:1 month Functional Status Description No Information Available Mental Status Description No Information Available Referrals Description No Information Available
[2019-03-13 15:39] VITALS: BP 114/69
--- NOTE | 2019-03-13 17:13 | UC ---
Back Pain HPI - HPI Summary HPI Summary: Patient is 53 year old male, who present today to the urgent care with low back pain for past 3 days. Reports pain in the left lower back, unable to sleep, since . Denies injury. Started while he was sitting on a couch. Pain radiates down all the way to the left ankle. Denies any numbness or tingling. No incontinence, saddle anesthesia or muscle weakness or sensory loss. No recent weight loss Pain is worse with bending and walking. He reports that whenever he takes cortisone if he starts to throw up. He has taken Tylenol, ibuprofen and icy hot so far without much relief in symptoms. - History of Current Complaint Chief Complaint: UCBackPain Stated Complaint: BACK PAIN Time Seen by Provider: 03/13/19 17:11 Hx Obtained From: Patient Pain Intensity: 5 - Allergies/Home Medications Allergies/Adverse Reactions: Allergies Allergy/AdvReac Type Severity Reaction Status Date / Time codeine Allergy See Comment Verified 03/13/19 15:42 cortisone Allergy Nausea Verified 03/13/19 15:42 Penicillins Allergy Nausea And Verified 03/13/19 15:42 Vomiting THE SUN Allergy "SKIN Uncoded 03/13/19 15:42 BREAKS OUT WHEN EXPOSED TO SUN" PMH/Surg Hx/FS Hx/Imm Hx - Additional Past Medical History Additional PMH: Past Medical History : Gastric ulcer 2014 Past Surgical History: Nasal surgery, right wrist and left wrist surgery, left knee surgery Family History : non contributory Social History : No alcohol, non smoker, no drug use. Previously Healthy: Yes - Surgical History Surgical History: Yes Surgery Procedure, Year, and Place: 2011- NASAL SURGERY [facility]. 2012 RT [facility]-TENDON REPAIR [facility]. [facility] - TENDON REPAIR [facility]. 03/2015 LEFT KNEE [facility] - Family History Known Family History: Positive: Non-Contributory - Social History Alcohol Use: None Substance Use Type: None Smoking Status (MU): Never Smoked Tobacco Have You Smoked in the Last Year: No Household Exposure Type: Cigarettes Review of Systems All Other Systems Reviewed And Are Negative: Yes Constitutional: Positive: Negative Skin: Positive: Negative Eyes: Positive: Negative ENT: Positive: Negative Respiratory: Positive: Negative Cardiovascular: Positive: Negative Gastrointestinal: Positive: Negative Genitourinary: Positive: Negative Motor: Positive: Negative Neurovascular: Positive: Negative Musculoskeletal: Positive: Decreased ROM, Myalgia - Low back Neurological: Positive: Negative Psychological: Positive: Negative Is Patient Immunocompromised?: No Physical Exam - Summary Physical Exam Summary: Vital Signs Reviewed: Yes A+Ox3, no distress Eyes: Conjunctiva Clear ENT: Hearing grossly normal neck: supple Respiratory: Positive: No respiratory distress, No accessory muscle use Cardiovascular: skin color reflect adequate perfusion Musculoskeletal Exam: HALL x 4 without difficulty Neurological: Positive: Alert, ambulatory without difficulty Psychological: Positive: Normal Response To Family Skin: Positive: no rash, no ecchymosis Hip/ Spine: Const: alert and oriented X 3. No signs of apparent distress present. Musculo: Walks with a normal gait. Spine: No loss of the normal lumbar lordosis or step-off. There is midline tenderness and L3-L4 area and also there is left paraspinal tenderness noted in the same area There is no tenderness of the costovertebral angle bilaterally. Stability: No obvious instability. Strength: 5/5 ROM: Painful range of motion in all planes Special Tests: Straight leg raise is positive on the left side. bilateral hips : Insp/Palp: Normal to inspection and palpation. Strength: 5/5 bilaterally. Normal muscle tone bilaterally. ROM: full ROM - internal and external rotation, Neg LEIGH test and Neg FADIR test Special Tests: Corinna's test is negative bilaterally. Skin: No scars, rashes, lesions or ecchymosis. Neuro: Sensation intact to light touch. Motor and sensory intact. Reflexes: Left DTR's are intact. Right DTR's are intact. Toes downgoing. Coordination normal. Distal pulses intact. Triage Information Reviewed: Yes Vital Signs: Initial Vital Signs Temp 99.1 F 03/13/19 15:33 Pulse 75 03/13/19 15:33 Resp 16 03/13/19 15:33 BP 114/69 03/13/19 15:33 Pulse Ox 100 03/13/19 15:33 Vital Signs Reviewed: Yes Diagnostics - Radiology No standard instances Radiology Interpretation Completed By: Radiologist - Lumbar x-ray: FINDINGS: The vertebra are in normal alignment. No fracture is seen. Degenerative disc disease of the lower thoracic and lumbar spine includes loss of intervertebral disc height. There is anterior marginal osteophyte formation at the lower anterior thoracic spine as well as L1/L2. 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 Back Pain Course/Dx - Course Course Of Treatment: X-rays of the lumbar spine done today: FINDINGS: The vertebra are in normal alignment. No fracture is seen. Degenerative disc disease of the lower thoracic and lumbar spine includes loss of intervertebral disc height. There is anterior marginal osteophyte formation at the lower anterior thoracic spine as well as L1 /L2. 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 Suspect lumbar radiculopathy involving L4-L5 L5-S1 on the left side secondary to disc injury or spinal stenosis. He does of lumbar arthritis. We discussed further treatment options and alternatives and plan to start physical therapy and pain control. He was given 1 dose of Flexeril to be taken at home and one dose of naproxen here and it was prescribed to the pharmacy as well.. He will start physical therapy and follow with a primary care doctor and spine program at [facility] He expressed understanding - Differential Dx/Diagnosis Provider Diagnosis: Low back pain, Lumbar radiculopathy, Degenerative joint disease (DJD) of lumbar spine Discharge ED - Sign-Out/Discharge Documenting (check all that apply): Patient Departure All imaging exams completed and their final reports reviewed: Yes - Discharge Plan Condition: Stable Disposition: HOME Prescriptions: Cyclobenzaprine TAB* [Flexeril 10 MG TAB*] 10 mg PO DAILY PRN 14 Days #14 tab PRN Reason: Spasms - Back Naproxen [Naproxen 500 mg tab] 500 mg PO BID PRN 14 Days #28 tablet.dr SALAS Reason: Pain - Moderate Patient Education Materials: Low Back Strain (ED), Lumbar Radiculopathy (ED), Lower Back Exercises (ED) Referrals: Adalberto Villalobos MD [Medical Doctor] - As Soon As Possible Miguel Yang MD [Primary Care Provider] - 1 Week Additional Instructions: Please start taking the medication as prescribed to the pharmacy . Start Physical therapy Follow up with your primary care doctor in 2- 3 days. Follow up with spine program at [facility]. Please call and schedule an appointment. Return to Urgent care / ER if symptoms get worse. - Billing Disposition and Condition Condition: STABLE Disposition: Home
[2019-03-13] MEDS ORDERED: Cyclobenzaprine TAB* 10 MG PO ONE (18:05)
[2019-03-13] MEDS ORDERED: Naproxen TAB* 250 MG PO ONE (18:06)
== END 2019-03-13 18:26 | disposition home or self-care (01) ==
LOC: UCCORT 14:47
DX: M54.5 Low back pain (principal); M54.16 Radiculopathy, lumbar region; M47.896 Other spondylosis, lumbar region; M51.34 Other intervertebral disc degeneration, thoracic region; M51.36 Other intervertebral disc degeneration, lumbar region; Z88.0 Allergy status to penicillin; Z88.5 Allergy status to narcotic agent; Z88.8 Allergy status to other drugs, medicaments and biological substances; Z91.09 Other allergy status, other than to drugs and biological substances
CPT/HCPCS: 72100; 99212; A9270-GY; G0463

== ENCOUNTER 2019-04-01 13:50 | Emergency (ER) | payer MEDICARE ==
[2019-04-01 14:08] VITALS: BP 130/82
--- NOTE | 2019-04-01 14:45 | UC ---
Hip/Pelvis Pain - HPI Summary HPI Summary: Pt presents with c/o left side hip and side pain s/p falling form standing height 1 day ago. - History Of Current Complaint Chief Complaint: UCGeneralIllness Stated Complaint: LEFT HIP DOWN LEG PAIN Time Seen by Provider: 04/01/19 14:18 Hx Obtained From: Patient Onset/Duration: Sudden Onset, Lasting Days, Still Present Timing: Constant Severity Initially: Moderate Severity Currently: Moderate Pain Intensity: 5 Character Of Pain: Dull, Aching Aggravating Factor(s): Movement, Weight Bearing Alleviating Factor(s): Nothing Associated Signs And Symptoms: Positive: Negative - Risk Factors Septic Arthritis Risk Factor: Negative - Allergies/Home Medications Allergies/Adverse Reactions: Allergies Allergy/AdvReac Type Severity Reaction Status Date / Time codeine Allergy See Comment Verified 04/01/19 14:08 cortisone Allergy Nausea Verified 04/01/19 14:08 Penicillins Allergy Nausea And Verified 04/01/19 14:08 Vomiting THE SUN Allergy "SKIN Uncoded 04/01/19 14:08 BREAKS OUT WHEN EXPOSED TO SUN" PMH/Surg Hx/FS Hx/Imm Hx Previously Healthy: Yes Neurological History: Seizures - Surgical History Surgical History: Yes Surgery Procedure, Year, and Place: 2011- NASAL SURGERY [facility]. 2012 [facility]ON REPAIR [facility]. [facility] - TENDON REPAIR [facility]. 03/2015 LEFT KNEE [facility] - Family History Known Family History: Positive: Cardiac Disease, Non-Contributory - Social History Occupation: Unemployed Lives: With Family Alcohol Use: None Substance Use Type: None Smoking Status (MU): Never Smoked Tobacco Have You Smoked in the Last Year: No Household Exposure Type: Cigarettes Review of Systems All Other Systems Reviewed And Are Negative: Yes Constitutional: Positive: Negative Skin: Positive: Negative Eyes: Positive: Negative ENT: Positive: Negative Respiratory: Positive: Negative Cardiovascular: Positive: Negative Gastrointestinal: Positive: Negative Genitourinary: Positive: Negative Motor: Positive: Other - pain with ROM left hip Neurovascular: Positive: Negative Musculoskeletal: Positive: Arthralgia, Myalgia Neurological: Positive: Negative Psychological: Positive: Negative Is Patient Immunocompromised?: No Physical Exam Triage Information Reviewed: Yes Appearance: Other: - unkempt, wreaks of urine Vital Signs: Initial Vital Signs Temp 98.8 F 04/01/19 14:02 Pulse 100 01/17/20 14:02 Resp 18 04/01/19 14:02 BP 130/82 04/01/19 14:02 Pulse Ox 99 04/01/19 14:02 Vital Signs Reviewed: Yes Eye Exam: Normal ENT: Positive: Hearing grossly normal Dental Exam: Normal Neck exam: Normal Respiratory: Positive: No respiratory distress Musculoskeletal: Positive: Other: - no ecchymosis, no swelling, c/o pain left hip/side Neurological Exam: Normal Psychological Exam: Normal Skin Exam: Normal Diagnostics - Radiology No standard instances Radiology Interpretation Completed By: Radiologist - negative for fracture Hip Injury Course/Dx - Differential Dx/Diagnosis Differential Diagnosis/HQI/PQRI: Contusion, Fracture, Sprain, Strain Provider Diagnosis: Contusion of left hip Discharge ED - Sign-Out/Discharge Documenting (check all that apply): Patient Departure All imaging exams completed and their final reports reviewed: Yes - Discharge Plan Condition: Stable Disposition: HOME Patient Education Materials: Hip Contusion (ED) Referrals: Miguel Yang MD [Primary Care Provider] - If Needed - Billing Disposition and Condition Condition: STABLE Disposition: Home
== END 2019-04-01 15:10 | disposition home or self-care (01) ==
LOC: UCCORT 13:50
DX: S70.02XA Contusion of left hip, initial encounter (principal); Z88.0 Allergy status to penicillin; Z88.5 Allergy status to narcotic agent; Z88.8 Allergy status to other drugs, medicaments and biological substances; Z91.09 Other allergy status, other than to drugs and biological substances; W18.30XA Fall on same level, unspecified, initial encounter; Y92.9 Unspecified place or not applicable
CPT/HCPCS: 99211; G0463